=== PATIENT | male | born 1990 | race Caucasian/White ===

== ENCOUNTER 2019-08-04 09:10 | Inpatient (IN) | payer BC ==
--- NOTE | 2019-08-03 16:30 | Pre-op HX & Phy Repo 2 SIG ---
DATE OF ADMISSION: 08/04/2019 HISTORY OF PRESENT ILLNESS: The patient is a 28-year-old male in overall stable health with a failed ileoanal J-pouch scheduled to undergo surgery including abdominal-perineal proctectomy and resection of failed ileoanal S-pouch and creation of a Harris continent intestinal reservoir. The patient has a past history of ulcerative colitis that developed in 2013 and failed all medical treatments. In October 2016, he underwent total colectomy with S-pouch and loop ileostomy in a laparoscopic-assisted procedure. The ileostomy was closed in October 2016. Ever since then, he has had frequent stools 10 to 15 times per day plus up to 5 stools every night and he has incontinence. 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 OPERATIONS: 1. Laparoscopic-assisted total colectomy and partial proctectomy with ileoanal S-pouch in August 2016. 2. Closure of diverting ileostomy in October 2016. MEDICATIONS: None. ALLERGIES: Cipro causes numbness and tingling in the hands. REVIEW OF SYSTEMS: The patient feels depleted. He has episodes of dehydration. His weight used to be 195 pounds. He is now down to 170 pounds although stable. PHYSICAL EXAMINATION: GENERAL: The patient is 6 feet, 170 pounds. He is arriving from out of [facility] and will be examined upon arrival and dictated separately. IMPRESSION: 1. Malfunctioning failed ileoanal pouch. 2. History of ulcerative colitis. 3. Status post multiple abdominal operations. 3.1. Laparoscopic-assisted total abdominal colectomy and partial proctectomy with creation of ileoanal S-pouch in August 2016 with diverting loop ileostomy in the left lower quadrant. 3.2. Closure of diverting ileostomy in October 2016. PLAN: I have had a full discussion with the patient regarding the nature of his condition, the nature of the planned surgery, indications, alternatives, options, and risks including bleeding, infection, injury to adjacent structures or organs, complications or delayed healing of the perineum, the risks of Harris pouch surgery including the risk of reoperation for slipped valve or fistula of pouch or valve or other complications with the function or structure of the pouch etc. I have discussed the risk of pouchitis with a new pouch and its management. I will have another full discussion in person with the patient when he [place]. Mauri Flowers M.D. DR: NAYELI JOB#: [id number] CC:
[~2019-08-04] VITALS: Ht 182.9 cm; Wt 73.5 kg
--- NOTE | 2019-08-04 09:41 | NUR ---
NURSE NOTES: Received patient from direct adm. pt a/a/o x4 ambulatory with no signs of distress or other issues at this time. RN will enter orders and carry them out. I will f/u as needed.
[2019-08-04] MEDS ORDERED: Lidocaine 1% Plain 30 ml INJ ONE (10:45)
[2019-08-04] MEDS ORDERED: Heparin1,000 units/500ml Premix(Conc:2 units/ml) IV ONE (10:45)
[2019-08-04] MEDS ORDERED: D5 1/2NS w/KCl 20mEq 1,000 ML IV SCH (11:00)
[2019-08-04] MEDS ORDERED: Zolpidem 5mg tab ORAL PRN ×2 (11:00→20:00)
[2019-08-04 12:00] VITALS: BP 136/72
--- NOTE | 2019-08-04 12:04 | NUR ---
RADIOLOGY DEPT., CHEST X-RAY DONE.-P.DYE
[2019-08-04 12:40] LABS: BASOPHILS % (AUTO) 0.9 % (0.0-2.0); EOSINOPHILS % (AUTO) 3.2 % (0.0-3.0); HEMATOCRIT 47.1 % (42.0-52.0); HEMOGLOBIN 15.1 G/DL (14.2-18.0); LYMPHOCYTES % (AUTO) 11.4 % (20.0-45.0); MEAN CORPUSCULAR VOLUME 81 FL (80-99); MONOCYTES % (AUTO) 5.9 % (1.0-10.0); NEUTROPHILS % (AUTO) 78.6 % (45.0-75.0); PLATELET COUNT 291 K/UL (150-450); RED BLOOD COUNT 5.82 M/UL (4.70-6.10); WHITE BLOOD COUNT 9.7 K/UL (4.8-10.8)
--- NOTE | 2019-08-04 13:02 | Diagnostic Imaging Report ---
Indication: Cough Technique: One view of the chest Comparison: none Findings: Lungs and pleural spaces are clear. Heart size is normal Impression: No acute process
[2019-08-04 13:15] LABS: % IRON SATURATION 9 % (15-50); IRON 27 ug/dL (50-175); TOTAL IRON BINDING CAPACITY 310 ug/dL (250-450)
[2019-08-04] MEDS: Neomycin Sulfate 500mg Tab ORAL SCH ×3 (13:21→20:06)
[2019-08-04] MEDS ORDERED: Lidocaine 1% Plain 30 ml INJ SCH (13:30)
[2019-08-04] MEDS ORDERED: Heparin1,000 units/500ml Premix(Conc:2 units/ml) IV SCH (13:30)
[2019-08-04 13:35] LABS: ANION GAP 12 mmol/L (5-15); BLOOD UREA NITROGEN 15 mg/dL (7-18); CALCIUM 9.4 MG/DL (8.5-10.1); CARBON DIOXIDE 28 MMOL/L (21-32); CHLORIDE 108 MMOL/L (98-107); CREATININE 0.9 MG/DL (0.55-1.30); POTASSIUM 4.1 MMOL/L (3.5-5.1); SODIUM 147 MMOL/L (136-145)
--- NOTE | 2019-08-04 13:44 | NUR ---
NURSE NOTES: Pt left the floor for PICC line placement. pt left the floor with no signs of distress or other issues. I will f/u as needed.
[2019-08-04 13:56] LABS: ALANINE AMINOTRANSFERASE 18 U/L (12-78); ALBUMIN 3.9 G/DL (3.4-5.0); ALKALINE PHOSPHATASE 56 U/L (46-116); ASPARTATE AMINO TRANSFERASE 12 U/L (15-37); BILIRUBIN,TOTAL 0.3 MG/DL (0.2-1.0); FERRITIN 47 NG/ML (8-388)
--- NOTE | 2019-08-04 14:30 | Pre-Procedure Note/Attestation ---
Pre-Procedure Note/Attestation Complete Prior to Procedure Planned Procedure: not applicable Procedure Narrative: PICC Indications for Procedure Pre-Operative Diagnosis: needs IV access for TPN Attestation I attest that I discussed the nature of the procedure; its benefits; risks and complications; and alternatives (and the risks and benefits of such alternatives ), prior to the procedure, with the patient (or the patient's legal hospital insurance representative). I attest that, if there was a reasonable possibility of needing a blood transfusion, the patient (or the patient's legal hospital insurance representative) was given the [facility] standardized written summary, pursuant to the Marcos Carson Blood Safety Act ([place] Health and Safety Code # 1645, as amended). I attest that I re-evaluated the patient just prior to the surgery and that there has been no change in the patient's H&P, except as documented below: Harjinder Lopez MD Aug 04, 2019 14:30
--- NOTE | 2019-08-04 14:31 | Brief Operative Note ---
Immediate Post Operative Note Operative Note Pre-op Diagnosis: needs IV access for TPN Procedure: PICC Post-op Diagnosis: same as pre-op Surgeon: Juan LOPEZ Anesthesia: local Specimen: none Complications: none Fluids: none Implant(s) used?: No Harjinder Lopez MD Aug 04, 2019 14:31
--- NOTE | 2019-08-04 14:45 | Diagnostic Imaging Report ---
Indications: Needs long-term IV access Technique: Ultrasound confirms patent compressible left basilic vein. Total sterile technique, including sterile probe cover and sterile gel, hat, mask, sterile gown, large sterile drape, and preparation with 2% chlorhexidine utilized. Local anesthesia with 1% lidocaine. Under real-time ultrasound guidance, puncture basilic vein using 21-gauge needle, documented and archived, passage 0.018 guidewire under direct fluoroscopy, which was used to determine appropriate catheter length, exchange for 4 Emirati peel-away sheath. 4 Emirati Bard dual-lumen power PICC cut to 46 cm. It was inserted through the peel-away sheath. Peel-away sheath and guidewire removed. Catheter fixed to the skin. Both catheter ports aspirated and flushed. Patient tolerated procedure well, without immediate complication. Digital radiograph documents satisfactory catheter tip position, at the cavoatrial junction. Total fluoroscopy time 14.7 seconds. Total dose area product [id number] mGym2 Total number of images: 1 Impression: Successful placement of left arm PICC under sonographic and fluoroscopic guidance, as described above.
[2019-08-04 16:00] VITALS: BP 110/59
[2019-08-04] MEDS: D5W w/KCl 20mEq 1,000 ML IV SCH (16:11)
--- NOTE | 2019-08-04 16:24 | Anethesia Preoperative Eval ---
Anesthesia Pre-op PMH/ROS General Date of Evaluation: Aug 04, 2019 Time of Evaluation: 16:22 ASA Score: ASA 2 Mallampati Score Class I : Soft palate, uvula, fauces, pillars visible Class II: Soft palate, uvula, fauces visible Class III: Soft palate, base of uvula visible Class IV: Only hard plate visible Mallampati Classification: Class II Surgeon: Lionel Diagnosis: U. Colitis Surgical Procedure: Abd Perinaeal proctectomy Anesthesia History: none Family History: no anesthesia problems Allergies: Coded Allergies: NO KNOWN ALLERGIES (Verified Allergy, Unknown, 08/04/19) Medications: see eMAR Patient NPO?: Yes NPO Date: Aug 04, 2019 NPO Time: 00:01 Past Medical History Cardiovascular: Denies: HTN, CAD, PA, valve dz, arrhythmia, other Pulmonary: Denies: asthma, COPD, ROSELIA, other Gastrointestinal/Genitourinary: Reports: other - Ulcer colitis; Denies: GERD, CRI, ESRD Neurologic/Psychiatric: Denies: dementia, CVA, depression/anxiety, TIA, other Endocrine: Denies: DM, hypothyroidism, steroids, other HEENT: Denies: cataract (L), cataract (R), glaucoma, MINTO (L), MINTO (R), other Hematology/Immune: Denies: anemia, DVT, bleeding disorder, other Musculoskeletal/Integumentary: Denies: OA, RA, DJD, DDD, edema, other PSxH Narrative: S pouch 2016 Anesthesia Pre-op Phys. Exam Physician Exam Last Vital Signs Date Time Temp Pulse Resp B/P (MAP) Pulse Ox O2 Delivery O2 Flow Rate FiO2 08/04/19 12:00 97.3 71 18 136/72 (93) 96 08/04/19 10:37 Room Air Constitutional: NAD Neurologic: CN 2-12 intact Cardiovascular: RRR Respiratory: CTA Gastrointestinal: S/NT/ND Airway Exam Mallampati Classification 2 Mallampati Score: Class II MO: full ROM: full Dentures: no upper, no lower Anesthesia Pre-op A/P Labs Hematology Test 08/04/19 12:24 White Blood Count 9.7 K/UL (4.8-10.8) Red Blood Count 5.82 M/UL (4.70-6.10) Hemoglobin 15.1 G/DL (14.2-18.0) Hematocrit 47.1 % (42.0-52.0) Mean Corpuscular Volume 81 FL (80-99) Mean Corpuscular Hemoglobin 26.0 PG (27.0-31.0) L Mean Corpuscular Hemoglobin Concent 32.1 G/DL (32.0-36.0) Red Cell Distribution Width 13.0 % (11.6-14.8) Platelet Count 291 K/UL (150-450) Mean Platelet Volume 4.9 FL (6.5-10.1) L Neutrophils (%) (Auto) 78.6 % (45.0-75.0) H Lymphocytes (%) (Auto) 11.4 % (20.0-45.0) L Monocytes (%) (Auto) 5.9 % (1.0-10.0) Eosinophils (%) (Auto) 3.2 % (0.0-3.0) H Basophils (%) (Auto) 0.9 % (0.0-2.0) Coagulation Test 08/04/19 12:24 Prothrombin Time 10.6 SEC (9.30-11.50) Prothromb Time International Ratio 1.0 (0.9-1.1) Activated Partial Thromboplast Time 28 SEC (23-33) Chemistry Test 08/04/19 12:24 Sodium Level 147 MMOL/L (136-145) H Potassium Level 4.1 MMOL/L (3.5-5.1) Chloride Level 108 MMOL/L (98-107) H Carbon Dioxide Level 28 MMOL/L (21-32) Anion Gap 12 mmol/L (5-15) Blood Urea Nitrogen 15 mg/dL (7-18) Creatinine 0.9 MG/DL (0.55-1.30) Estimat Glomerular Filtration Rate > 60 mL/min (>60) Glucose Level 87 MG/DL (74-106) Calcium Level 9.4 MG/DL (8.5-10.1) Iron Level 27 ug/dL (50-175) L Total Iron Binding Capacity 310 ug/dL (250-450) Percent Iron Saturation 9 % (15-50) L Unsaturated Iron Binding 283 ug/dL (112-346) Ferritin 47 NG/ML (8-388) Total Bilirubin 0.3 MG/DL (0.2-1.0) Aspartate Amino Transf (AST/SGOT) 12 U/L (15-37) L Alanine Aminotransferase (ALT/SGPT) 18 U/L (12-78) Alkaline Phosphatase 56 U/L (46-116) Total Protein 7.8 G/DL (6.4-8.2) Albumin 3.9 G/DL (3.4-5.0) Globulin 3.9 g/dL Albumin/Globulin Ratio 1.0 (1.0-2.7) Vitamin B12 Level 698 PG/ML (193-986) Folate 17.0 NG/ML (8.6-58.9) Studies Pre-op Studies: EKG - SR Risk Assessment & Plan Plan: Kendra Alonso CRNA Aug 04, 2019 16:24
--- NOTE | 2019-08-04 16:56 | General Progress Note ---
Progress Note Progress Note H&P dictated. Site selected for BCIR continent ileostomy stoma. Perianal skin with some excoriation circumferential. CBC - wnl Na 147 Iron 27 (50-175) Ferritin 47 (8-388) Albumin 3.9 - may be normal range due to dehydration /hempoconcentration B!2 and Folate ok Imp. History of Ulcerative Colitis with failed ileoanal J pouch with intractable pouchitis and incontinence Sever iron deficiency - he states this is chronic with his last iron infusion 6 months ago with brief improvement at that time Dehydration Plan: IV fluids via PICC f/u labs in AM bowel prep, pre-op IV antibiotics and subq heparin Full discussion with patient and . Mauri Flowers MD Aug 04, 2019 16:56
[2019-08-04 17:21] LABS: APPEARANCE,URINE CLEAR; BILIRUBIN, URINE NEGATIVE (NEGATIVE); GLUCOSE, URINE (UA) NEGATIVE (NEGATIVE); KETONES,URINE 4+ (NEGATIVE); LEUKOCYTE ESTERASE ,URINE NEGATIVE (NEGATIVE); NITRITE,URINE NEGATIVE (NEGATIVE); PH,URINE 5 (4.5-8.0); PROTEIN,URINE NEGATIVE (NEGATIVE); UROBILINOGEN,URINE NORMAL MG/DL (0.0-1.0)
[2019-08-04 17:23] LABS: COLOR,URINE YELLOW
--- NOTE | 2019-08-04 19:36 | NUR ---
HAND-OFF: Report given to Belén LANE, pt in stable condition. - During my shift pt was able to ambulate around the unit multiple times with steady gait. I&O's - Ileostomy out put:505-80= 425ml - Total urine output: 1700ml - Total oral intake: 1108ml - Breakfast, Lunch and Diner: 100% Addendum: 08/04/19 at 1940 by Lilliam Rees RN please discard this note belong to a different patient!!
--- NOTE | 2019-08-04 19:40 | NUR ---
HAND-OFF: Report given to Belén LANE. pt in stable condition. - pt signed consent for tomorrow procedure.
--- NOTE | 2019-08-04 19:41 | NUR ---
NURSE NOTES: Received report & pt from DOMINGO Vyas. Pt lying in bed, a&ox4, in room air, family member at bedside. No s/s of acute distress & No c/o pain. Skin intact. PICC line intact with IVF running as ordered. Pt to NPO at midnight for tomorrow's surgery & pt made aware. Bed in lowest position, call light within reach. Will continue to monitor.
[2019-08-04 20:00] VITALS: BP 114/65
[2019-08-04] MEDS: Dyna-Hex 2% Top Sol 2oz TOPIC SCH (20:06)
[2019-08-05] VITALS (18 sets, daily range): BP systolic 100–124; BP diastolic 58–74
[2019-08-05] MEDS: D5W w/KCl 20mEq 1,000 ML IV SCH ×2 (00:12→08:00)
[2019-08-05] MEDS: Ampicillin/Sulbactam Sod 3 GM in NS 110 ML IVPB SCH ×4 (00:13→17:30)
--- NOTE | 2019-08-05 03:15 | Pre-op HX & Phy Repo 2 SIG ---
DATE OF ADMISSION: 08/04/2019 The [place] now [place]. Please see previously dictated history. PHYSICAL EXAMINATION: GENERAL: He is well developed, appears slightly depleted. VITAL SIGNS: Normal stable vital signs and no distress. He is 6 feet and 170 pounds. His usual weight has been 195 pounds. HEENT: Within normal limits. LUNGS: Clear. HEART: Regular rhythm. BREASTS: Without masses. ABDOMEN: Soft. There is a lower midline scar, slightly wide. There is a curvilinear scar just above the umbilicus. There is a transverse scar in the upper part of the left lower quadrant from prior ileostomy. There is no evidence of abdominal wall hernia. GENITOURINARY: Testes and scrotum within normal limits. RECTAL: There is circumferential perianal skin excoriation from his ongoing incontinence issues from his failed ileoanal J-pouch. EXTREMITIES: Without edema. Pulses 3+ femoral to posterior tibial bilaterally. NEUROLOGIC: Physiologic. LABORATORY STUDIES: On admission revealed he is somewhat dehydrated with sodium 147, BUN 15, and creatinine 0.9. He has not been eating well at all and is depleted. Albumin of 3.9, is probably artificially elevated because of his dehydration and hemoconcentration, especially hemoglobin of over 15 with a history of chronic anemia requiring iron infusions, last given six months ago. The serum iron is 27, normal range 50 to 175. The ferritin is 47, normal range 8 to 338. IMPRESSION: 1. Malfunctioning and failed ileoanal J-pouch. 2. History of ulcerative colitis. 3. STATUS POST MULTIPLE ABDOMINAL OPERATIONS: 3.1. Laparoscopic-assisted total abdominal colectomy with partial proctectomy and creation of ileoanal S-pouch in August 2016 with diverting loop ileostomy, left lower quadrant. 3.2. Closure of diverting ileostomy in October 2016. 4. Dehydration on admission with hypernatremia and possible hemoconcentration. PLAN: The patient has undergone insertion of a dual lumen PICC line beginning on intravenous hydration, bowel prep with intravenous hydration during his bowel prep. We will start intravenous antibiotics the night of admission, continuing to surgery the following morning. He will receive preoperative subcutaneous heparin. Repeat laboratory studies will be obtained after overnight hydration to see what his true levels are for hemoglobin, serum albumin, and electrolytes. Plan: abdomino-perineal proctectomy with resection of failed J-pouch with intractable pouchitis and creation of a Harris continent intestinal reservoir. I have had a full discussion with the patient and his regarding the nature of his condition, the nature of the surgery, indications, alternatives, options, and risks. Discussed the option of resecting the J-pouch and completing the proctectomy as low as possible above the anal canal, but deferring completion proctectomy if the perianal excoriation is severe at the time of surgery with examination under anesthesia because of the increased risk of failure to heal the perineum primarily. The alternative would be to do a subsequent perineal proctectomy. I have discussed the nature of the Harris continent intestinal reservoir and that it requires a normal amount of small intestine and normal small intestine without pathology. Also, we discussed the use of a temporary gastrostomy and its indications. I have discussed the general risks of surgery including bleeding, infection, injury to adjacent structures or organs, adhesions that could lead to obstructions, bladder dysfunction, postoperative impotence and the retrograde ejaculation as risks of the procedure. I have also discussed the specific risks of the Harris continent intestinal reservoir including the potential need for revision for slipped valve or because of fistula of pouch or valve, or other issues including the function and structure of the pouch. I have also discussed the risks that he could develop pouchitis in the Harris pouch and the various treatments and management available compared to his failed ileoanal J-pouch management. All questions have been answered. The patient understands and agrees to proceed. I have discussed the potential risks with transfusion as well. Mauri Flowers M.D. DR: NAZARIO JOB#: [id number] CC: JASON
[2019-08-05] MEDS ORDERED: Heparin 5000 units/ml inj SUBQ ONE (05:30)
--- NOTE | 2019-08-05 06:00 | NUR ---
NURSE NOTES: Told pt at beginning of shift that RN will record urine output. However, pt flushed all urine through out the night. Per pt, she urinated 5 times.
[2019-08-05] MEDS ORDERED: Rocuronium Bromide 50mg/5ml Inj IV ONE (06:22)
[2019-08-05] MEDS ORDERED: LR 1000ml 1,000 ML IVLG SCH (06:25)
[2019-08-05] MEDS ORDERED: Metoclopramide 10mg/2ml Inj IVP PRN (06:30)
[2019-08-05] MEDS ORDERED: DiphenhydrAMINE 50mg/ml Inj IVP PRN ×2 (06:30→12:30)
[2019-08-05] MEDS ORDERED: Ketorolac 30mg Inj IV PRN ×2 (06:30)
[2019-08-05] MEDS ORDERED: Atropine Sulfate 0.4mg/ml inj IVP PRN (06:30)
[2019-08-05] MEDS ORDERED: Labetalol 5mg/ml 20ml vial IV PRN (06:30)
[2019-08-05] MEDS ORDERED: oxyCODONE HCL/Acetaminophen 5/325mg ORAL PRN (06:30)
[2019-08-05] MEDS ORDERED: Hydromorphone 0.5mg/0.5ml inj IVP PRN (06:30)
[2019-08-05] MEDS ORDERED: fentaNYL 100 mcg/2 mL IV PRN (06:30)
[2019-08-05] MEDS ORDERED: HYDROcodone/Acetamin 5/325 tab ORAL PRN (06:30)
[2019-08-05] MEDS ORDERED: LORazepam Inj 2mg/ml 1ml IV PRN (06:30)
[2019-08-05] MEDS ORDERED: HYDROcodone/Acetamin 7.5/325 tab ORAL PRN (06:30)
[2019-08-05] MEDS ORDERED: Midazolam 2mg/2ml Inj IVP PRN (06:30)
[2019-08-05] MEDS ORDERED: Meperidine 50mg/ml Inj(FOR RIGORS ONLY) IVP PRN (06:30)
[2019-08-05 06:49] LABS: BASOPHILS % (AUTO) 0.8 % (0.0-2.0); EOSINOPHILS % (AUTO) 4.7 % (0.0-3.0); HEMATOCRIT 47.3 % (42.0-52.0); HEMOGLOBIN 15.3 G/DL (14.2-18.0); LYMPHOCYTES % (AUTO) 16.2 % (20.0-45.0); MEAN CORPUSCULAR VOLUME 81 FL (80-99); MONOCYTES % (AUTO) 6.5 % (1.0-10.0); NEUTROPHILS % (AUTO) 71.8 % (45.0-75.0); PLATELET COUNT 285 K/UL (150-450); RED BLOOD COUNT 5.86 M/UL (4.70-6.10); RED CELL DISTRIBUTION WIDTH 12.4 % (11.6-14.8); WHITE BLOOD COUNT 7.2 K/UL (4.8-10.8)
[2019-08-05] MEDS ORDERED: Dexamethasone 4mg/ml vial ONE (06:51)
[2019-08-05] MEDS ORDERED: Lidocaine 1% MPF 10mg/ml 5ml ONE (06:51)
[2019-08-05] MEDS ORDERED: fentaNYL 100 mcg/2 mL IV ONE ×2 (06:52→09:34)
--- NOTE | 2019-08-05 06:53 | Pre-Procedure Note/Attestation ---
Pre-Procedure Note/Attestation Complete Prior to Procedure Planned Procedure: not applicable Procedure Narrative: Abdomino-perineal proctectomy with excision of ileoanal J pouch, Harris Continent Intestinal [place], gastrostomy Indications for Procedure Pre-Operative Diagnosis: Ulcerative colitis with failed ileoanal J pouch Attestation I attest that I discussed the nature of the procedure; its benefits; risks and complications; and alternatives (and the risks and benefits of such alternatives ), prior to the procedure, with the patient (or the patient's legal real estate representative). I attest that, if there was a reasonable possibility of needing a blood transfusion, the patient (or the patient's legal real estate representative) was given the [place] [facility] standardized written summary, pursuant to the Marcos Bryan Blood Safety Act ([place] Health and Safety Code # 1645, as amended). I attest that I re-evaluated the patient just prior to the surgery and that there has been no change in the patient's H&P, except as documented below: none Mauri Flowers MD Aug 05, 2019 06:53
[2019-08-05] MEDS ORDERED: Lidocaine 1% Plain 30 ml INJ ONE ×3 (06:54→10:52)
--- NOTE | 2019-08-05 06:56 | NUR ---
NURSE NOTES: Pt picked up by transporter. In stable condition. VSS. ID band verified. Pre-op checklist also done.
[2019-08-05] MEDS ORDERED: LR 1000ml ONE (07:00)
[2019-08-05] MEDS ORDERED: Sterile Water Irrig 1000ml IRRIG ONE (07:00)
[2019-08-05] MEDS ORDERED: NS Irrig 1000ml ONE (07:00)
[2019-08-05] MEDS ORDERED: Propofol 1,000mg/ 100ml btl IV ONE (07:00)
[2019-08-05] MEDS ORDERED: Acetaminophen (Non formulary) 100 ML IV ONE (07:00)
[2019-08-05] MEDS ORDERED: NeoSporin Gu Irrig 1ml Amp IRRIG ONE (07:13)
[2019-08-05] MEDS ORDERED: Bacitracin 50000 Units Vial ONE (07:13)
--- NOTE | 2019-08-05 07:30 | NUR ---
HAND-OFF: Report given to DOMINGO Altamirano. Pt already went down for surgery. AM RN to bring down 1200 ABX (Flagyl & Unasyn) to surgery.
[2019-08-05 07:56] LABS: ALANINE AMINOTRANSFERASE 18 U/L (12-78); ALBUMIN 3.7 G/DL (3.4-5.0); ALKALINE PHOSPHATASE 53 U/L (46-116); ANION GAP 9 mmol/L (5-15); ASPARTATE AMINO TRANSFERASE 17 U/L (15-37); BILIRUBIN,TOTAL 0.5 MG/DL (0.2-1.0); BLOOD UREA NITROGEN 8 mg/dL (7-18); CALCIUM 9.4 MG/DL (8.5-10.1); CARBON DIOXIDE 28 MMOL/L (21-32); CHLORIDE 107 MMOL/L (98-107); POTASSIUM 4.2 MMOL/L (3.5-5.1); SODIUM 144 MMOL/L (136-145)
--- NOTE | 2019-08-05 07:58 | NUR ---
NURSE NOTES: Received report from Belén LANE. Patient in OR currently, Flagyl taken down and given to OR, pharmacy to send Unasyn to OR when made.
[2019-08-05] MEDS ORDERED: NS Irrig 1000ml IRRIG ONE (08:00)
--- NOTE | 2019-08-05 11:10 | NUR ---
*-* NO INSURANCE INFORMATION IN THE BAR UNABLE TO SEND CLINICALS OR REVIEWS *-*
[2019-08-05] MEDS ORDERED: Glycopyrrolate 0.2mg/ml 1ml Vial ONE (11:12)
[2019-08-05] MEDS ORDERED: Neostigmine 1mg/ml 10ml Inj ONE (11:12)
[2019-08-05] MEDS ORDERED: Ampicillin/Sulbactam Sod 3 GM in NS 110 ML IV SCH (12:00)
[2019-08-05] MEDS ORDERED: Morphine Sulfate 2mg/ml Inj(IV/IM USE ONLY) IVP PRN (12:23)
--- NOTE | 2019-08-05 12:24 | Brief Operative Note ---
Immediate Post Operative Note Operative Note Pre-op Diagnosis: Ulcerative colitis with failed ileoanal J pouch Procedure: resection of failed ileoanal J pouch with distal proctectomy Harris Continent Intestinal [place] Gastrostomy Post-op Diagnosis: same Post-op Diagnosis: same as pre-op Findings: consistent w/pre-op dx studies Surgeon: cindy Coo: obed Anesthesiologist: jeffery Anesthesia: general Specimen: yes - ileoanal J pouch, small bowel trimmings Complications: none Condition: stable Fluids: see anesthesia record Estimated Blood Loss: volume - 100cc Drains: other - ABDELRAHMAN to deep pelvis, o.25" hayes, 18Fr gastrostomy, 18Fr BCIR ileo catheter Implant(s) used?: No Mauri Flowers MD Aug 05, 2019 12:24
--- NOTE | 2019-08-05 12:25 | Immediate Post-Op Evaluation ---
Immediate Post-Op Evalulation Immediate Post-Op Evalulation Procedure: Kimberly, Continent Ileostomy Date of Evaluation: Aug 05, 2019 Time of Evaluation: 12:39 IV Fluids: 1500 LR Blood Products: 0 Estimated Blood Loss: 100 Urinary Output: 200 Blood Pressure Systolic: 103 Blood Pressure Diastolic: 62 Pulse Rate: 64 Respiratory Rate: 16 O2 Sat by Pulse Oximetry: 100 Temperature (Fahrenheit): 97.1 Pain Score (1-10): 2 Nausea: No Vomiting: No Complications 0 Patient Status: awake, reacts, patent, extubated, none Hydration Status: adequate Drug: Flagyl, Unisyn at 12N Given Within 1 Hr of Incision: Yes Time Given: 12:00 Dany Lopez MD Aug 05, 2019 12:25
[2019-08-05] MEDS ORDERED: LORazepam 1mg tab SL PRN ×2 (12:30)
[2019-08-05] MEDS ORDERED: Acetaminophen 650mg/20.3ml GT PRN (12:30)
[2019-08-05] MEDS ORDERED: PCA Education Pamphlet MISC ONE (12:30)
[2019-08-05] MEDS ORDERED: Rate Change PCA 1 Each MISC PRN (12:30)
[2019-08-05] MEDS ORDERED: Naloxone 0.4mg/ml Inj IVP PRN (12:30)
[2019-08-05] MEDS: PCA Morphine 1mg/ml 30 ML IV PRN ×2 (12:35→22:56)
--- NOTE | 2019-08-05 14:30 | NUR ---
NURSE NOTES: Received report from Rosa Trevino RN. Patient arrived to unit at 1400 via bed. Patient is drowsy, but arousable to voice, no acute distress noted, reporting surgical site pain, occasional facial grimace. Ileo to gravity drainage with blood tinged output noted, redmond to gravity drainage with clear yellow urine, gastrostomy to gravity drainage with green output noted. On 2L NC. SCD's in place. Patient on PACKING AND SHIPPING CLERK morphine, settings checked and verified against order. Patient and his at bedside instructed on PACK[employer] SHIPPING CLERK use. Patient placed on continuous pulseox, saturating at 100%. Surgical site dressing clean and intact, abdominal ABDELRAHMAN compressed and draining serosanguinous output. Side rails upx3, bed low and locked, call light in reach. Will continue to monitor.
[2019-08-05] MEDS: D5 1/4NS w/KCl 20mEq 1,000 ML IV SCH ×2 (14:52→22:46)
--- NOTE | 2019-08-05 16:52 | General Progress Note ---
Progress Note Progress Note AVSS comfortable with Morphine HEEL GUMMER. No c/o re extremities upper or lower Dressing with small amount serosang via hayes, and ABDELRAHMAN and BCIR ileo Imp. Stable Mauri Flowers MD Aug 05, 2019 16:52
--- NOTE | 2019-08-05 17:30 | Operative Note - Dictated ---
DATE OF OPERATION: 08/05/2019 SURGEON: Mauri Flowers M.D. WASTEWATER ANALYST SURGEON: Navdeep Bentley M.D. ANESTHESIOLOGIST: Dany Lopez M.D. TYPE OF ANESTHESIA: General endotracheal. PREOPERATIVE DIAGNOSES: 1. Malfunctioning and failed ileoanal pouch. 2. History of ulcerative colitis. 3. Status post multiple abdominal operations. 3.1. Laparoscopic-assisted total abdominal colectomy and partial proctectomy with creation of ileoanal S-pouch with diverting loop ileostomy in the left lower quadrant in August 2016. 3.2. Closure of diverting ileostomy in October 2016. POSTOPERATIVE DIAGNOSES: 1. Malfunctioning and failed ileoanal pouch. 2. History of ulcerative colitis. 3. Status post multiple abdominal operations. 3.1. Laparoscopic-assisted total abdominal colectomy and partial proctectomy with creation of ileoanal S-pouch with diverting loop ileostomy in the left lower quadrant in August 2016. 3.2. Closure of diverting ileostomy in October 2016. OPERATION PERFORMED: 1. Laparotomy with resection of failed ileoanal J-pouch with distal proctectomy. 2. Segmental small bowel resection with prior enteroenterostomy. 3. Harris continent intestinal reservoir. 4. Catheter gastrostomy. DESCRIPTION OF PROCEDURE: The patient was taken to the operating room and under general endotracheal anesthesia with sequential compression device stockings and Bains catheter in place, positioned with appropriate padding in the lithotomy position with Trevor stirrups, the patient was prepped and draped in the usual fashion. Before the draping, I had done examination under anesthesia. He had a stricture at the junction of the pouch and the upper anal canal, and the perianal skin was excoriated and ulcerated. I also placed a Ly suction into the pouch to decompress any residual contents. Then after the patient was positioned, prepped, and draped, lower midline incision was reopened, extended ultimately just above the umbilicus. There were some adhesions of omentum with adhesive bands to the right and left side of the abdomen. These were taken down and a segment of omentum resected to prevent increased risk of obstruction from adhesions using the Thunderbeat electrosurgical device. The liver and gallbladder were normal. The stomach was normal. The patient had an abundance of small bowel, which was normal. Throughout the procedure, ureters and bladder were protected. Initially, the small bowel was divided with a SMOOTH just at the connection with the ileoanal pouch mobilizing it out of the pelvis and taking down some adhesions to free up all of the small bowel. The pouch mesentery was then divided down to the sacral promontory and dissection continued posteriorly below the rectum. There was severe inflammation and severe scarring and the dissection was kept right along the bowel wall. One entry into the pouch was made, which helped facilitate identifying the lateral aspects. I felt that with the perianal excoriation and ulceration and this inflammation and scarring, it was not advisable to do a complete abdomino-perineal proctectomy with the perineal portion being delayed to allow for healing. The bowel was divided approximately 4 cm from the anal verge with the stapler. This line was very thick and was oversewn with continuous #0 Prolene suture. Hemostasis was secured. Now, I initially wanted to use the bowel between the stapled end of the small bowel and incorporate the prior enteroenterostomy, but it was very thickened with a narrow lumen with dilated bowel proximally and I had to resect the segment again using a SMOOTH and the Thunderbeat to divide the mesentery. The staple line was imbricated with 3-0 silk and then 12 cm proximal marked for the intestinal collar segment. 15 cm proximal to this, the apex of the pouch was marked and then with appropriately located enterotomies keeping two 15 cm loops of ileum [id number] using the SMOOTH 75, a stapled ileal reservoir was created. The staple line was everted and 1 defect was seen, which was closed with continuous locking 2-0 chromic imbricated with interrupted 3-0 silk. The mucosal aspect had showed satisfactory hemostasis. The junction of the afferent bowel and the pouch was marked with a chromic suture and 12 cm proximal marked for the valve segment. A 2 fingerbreadth mesenteric hiatus created at this point using the Thunderbeat. The abdominal wall thickness was approximately 3 cm. An appropriate length access segment was measured and marked and the bowel divided with the linear stapler 30 proximally imbricated with 3-0 silk and distally left open to become the new stoma. Some mesentery was divided to allow for straight access segment using the Thunderbeat. The peritoneum was stripped on each side of the valve segment mesentery and the serosa scarified with cautery. With gradual intussusception, a 6.0 cm long nipple valve was created. Using the PI 55 stapling device with 4.8 mm charles, two rows were fired 90 degrees away from the mesentery. Sutures of 3-0 silk were placed between the access segment and the pouch at each side of its mesentery and then a third application of the PI 55 stapling device was utilized to staple the valve to the anterior pouch wall. Additional 3-0 silk was placed between the access segment and pouch. Using the ly suction, alignment was maintained and confirmed at all times. Now, the proximal bowel was brought [id number] with a very short blind end to the opening in the pouch and a 2-layer anastomosis created with an outer layer of 3-0 silk then the proximal bowel opened and a full-thickness continuous locking 2-0 chromic anastomosis created with an outer layer of 3-0 silk. A very good 2 fingerbreadth plus anastomosis was created. Now, the end of the collar was brought through the mesenteric hiatus at the junction of the access and valve segments and the collar sutured to itself, to the access segment and to the pouch with interrupted 3-0 silk and the 2 ends, the end of the collar and the end of proximal bowel, sutured together with 3-0 silk. The 28-[place] Bains was placed into the pouch through the access segment with the afferent bowel manually occluded, the pouch was distended with 150 mL of saline. There was no extravasation and upon removing the catheter, there was no incontinence. The catheter was reintroduced and the pouch decompressed. The pelvic dissection was irrigated and inspected and hemostasis was secured. Through a separate stab incision in the left lower quadrant, a thin flat Pietro-East was placed into the presacral space and sutured to the skin with 2-0 silk. The pelvic perineum was closed staying very superficially with continuous 2-0 chromic leaving the opening for the drain. This prevented bowel loops or the pouch from going into the presacral space towards the coccyx. The pouch lay nicely across the pelvis. At a previously marked location low in the right lower quadrant in transrectus position, a 2.5 cm narrow ellipse of skin was excised in transverse orientation and with a cruciate incision in the fascia, 1.5 to 2 fingerbreadth abdominal wall hiatus was created. The posterior collar and pouch was sutured to the peritoneum with 3-0 Vicryl and then the stoma and access segment with its mesentery brought through, the 28-[place] Bains catheter placed back into the pouch, and the pouch was up against the abdominal wall. The redundant access segment was excised and the stoma primarily matured with continuous 2-0 chromic locking suture starting at the 3 and 9 o'clock positions. A very satisfactory stoma was achieved. Through a separate stab incision inferior to the stoma, a quarter-inch Slaughters drain was placed loosely around the pouch and sutured to the skin with 3-0 silk. Now in order to provide good decompression from above, through a separate stab incision in the left upper quadrant, an 18-[place] Bains catheter was brought through the abdominal wall and placed into the stomach, greater curve anterior wall of body between two concentric 2-0 chromic pursestring sutures with the balloon inflated and the stomach sutured to the anterior abdominal wall with multiple interrupted 3-0 silk sutures. The catheter was flushed and connected to a gravity drainage bag. The catheter was sutured to the skin with 2-0 silk. Now, the 28-[place] Bains catheter in the Harris continent intestinal reservoir pouch was placed into the apex and sutured to the skin with two sutures of 2-0 silk. It was flushed and connected to a gravity drainage bag. Throughout the procedure, antibiotic soaked laps had been used to protect the incision and a Sawyer retractor had been used. The incision was now closed in one layer with continuous #1 looped PDS, followed by antibiotic irrigation and skin charles. Dry sterile dressings were applied. Final sponge and needle counts were correct. The patient tolerated the procedure well and left the operating room in stable condition. Mauri Flowers M.D. DR: NAYELI JOB#: [id number] CC: JASON
--- NOTE | 2019-08-05 18:50 | NUR ---
CASE MANAGEMENT: INITIAL REVIEW 28 YO M PRESENTED TO OUR ED FROM HOME CC: FAILED ILEOANAL J POUCH PMHx: COLITIS SI:COMPLICATIONS OF INTESTINAL POUCH T 97.3 HR 71 RR 18 B/P 136/72 SATS 96% ON RA NA 147 CL 108 AST 12 IS: PATIENT ADMITTED TO MED/SURG 08/04/2019 @ 1043 DCP: PATIENT TO BE DISCHARGED TO HOME ONCE MEDICALLY CLEARED. PLAN OF CARE: Pre-op Diagnosis: Ulcerative colitis with failed ileoanal J pouch Procedure: resection of failed ileoanal J pouch with distal proctectomy Kimberly Continent Intestinal [place] Gastrostomy Post-op Diagnosis: same Addendum: 08/05/19 at 1853 by Colleen Hicks CM INTERQUAL MET
--- NOTE | 2019-08-05 19:04 | NUR ---
NURSE NOTES: Total ileo output for my shift: +10mL Total g-tube output: -30mL Total urine output (from 1400 to 1800): 200mL Patient's pain is well managed at this time, VS are stable, patient encouraged to move extremities as tolerated and use IS when awake.
[2019-08-05] MEDS: PCA shift volume MISC SCH (19:28)
--- NOTE | 2019-08-05 19:35 | NUR ---
HAND-OFF: Report given to Bleén LANE.
--- NOTE | 2019-08-05 19:36 | NUR ---
NURSE NOTES: Received report & pt from DOMINGO Altamirano. Pt lying in bed, a&ox4, on O2 via NC @ 2LPM, family member at bedside. No s/s of acute distress & c/o 5/10 pain. Pain managed by BOND UNDERWRITER pump per pt. Bains, Ileo, GT cath intact & draining to gravity. ABDELRAHMAN bulb to suction. PICC line intact with IVF running as ordered. BOND UNDERWRITER setting checked. Bed in lowest position, call light & BOND UNDERWRITER pump within reach. Will continue to monitor.
[2019-08-05] MEDS: Dyna-Hex 2% Top Sol 2oz TOPIC SCH ×2 (20:05→20:49)
[2019-08-05] MEDS: Iron Sucrose 100 MG in NS 55 ML IV SCH ×2 (20:49→21:30)
--- NOTE | 2019-08-05 21:30 | NUR ---
NURSE NOTES: Pt refused Venofer IVPB stating, "I dont want my Venofer right now. I feel nauseous. It makes me feel nauseous. Some other time I would definitely want the Venofer." Educated pt about med but still continued to refuse. RN offered pt Zofran for nausea but pt states, "I don't think I need it. I'm ok for now" Told pt to call RN if he needs PRN meds for anything.
[2019-08-06] VITALS: BP 102/58
[2019-08-06] MEDS: Ampicillin/Sulbactam Sod 3 GM in NS 110 ML IVPB SCH ×5 (00:04→23:39)
[2019-08-06 04:00] VITALS: BP 109/65
[2019-08-06] MEDS: D5 1/4NS w/KCl 20mEq 1,000 ML IV SCH ×3 (06:02→23:39)
[2019-08-06 06:32] LABS: ANION GAP 8 mmol/L (5-15); BLOOD UREA NITROGEN 10 mg/dL (7-18); CALCIUM 8.5 MG/DL (8.5-10.1); CARBON DIOXIDE 29 MMOL/L (21-32); CHLORIDE 107 MMOL/L (98-107); CREATININE 0.8 MG/DL (0.55-1.30); POTASSIUM 4.5 MMOL/L (3.5-5.1); SODIUM 144 MMOL/L (136-145)
[2019-08-06 06:58] LABS: HEMATOCRIT 40.7 % (42.0-52.0); HEMOGLOBIN 13.8 G/DL (14.2-18.0); MEAN CORPUSCULAR VOLUME 79 FL (80-99); PLATELET COUNT 267 K/UL (150-450); RED BLOOD COUNT 5.15 M/UL (4.70-6.10); RED CELL DISTRIBUTION WIDTH 12.4 % (11.6-14.8); WHITE BLOOD COUNT 20.4 K/UL (4.8-10.8)
[2019-08-06] MEDS: PCA shift volume MISC SCH ×2 (07:25→19:18)
--- NOTE | 2019-08-06 07:30 | NUR ---
HAND-OFF: Report given to DOMINGO Altamirano. Rounds done. Encouraged to ambulate today. Dr. Flowers called to get an update regarding pt & update given. MD also aware of WBC 20.4
--- NOTE | 2019-08-06 07:30 | NUR ---
NURSE NOTES: Received report from Belén LANE. Patient is awake and oriented x4, during rounds, no acute distress noted. On 2L NC. Reporting pain is well managed at this time on SUSTAINABILITY ANALYST. SUSTAINABILITY ANALYST settings checked and verified against order. IVF running per order through PICC line, PICC intact, asymptomatic, patent, dressing clean and dry. Ileo, redmond and g-tube to gravity drainage. SCD's on. Discussed plan to get OOB and ambulate today, patient in agreement. Updated on plan of care for the day. Side rails upx3, bed low and locked, call light in reach. Will continue to monitor.
[2019-08-06 08:00] VITALS: BP 105/59
--- NOTE | 2019-08-06 09:51 | NUR ---
*-* INSURANCE *-* ALL COLINICALS AND REVIEWS HAVE BEEN FAXED TO: B/[facility] FAX CLINICALS TO [phone] [facility] FAX CLINICALS BEFORE 08/10/19 Addendum: 08/06/19 at 1018 by BHASKAR LUCAS FRANCISCO P: [phone] REF# [id number]
[2019-08-06 12:00] VITALS: BP 104/65
--- NOTE | 2019-08-06 13:44 | NUR ---
RN HYPERBARICDIRECTOR OF SUSTAINABLE DESIGN SI: ULCERATIVE COLITIS, POD#1 S/P LAP WITH RESECTION OF FAILED ILEOANAL J POUCH T. 97.5 HR 58 RR 16 B/P 105/59 2L NC O2 SAT @ 98% WBC 20.4 IS: IVF D5 @ 125ML/HR AMPICILLIN IV FLAGYL IV IRON IV MORPHINE IV MED/SURG STATUS
--- NOTE | 2019-08-06 14:19 | General Progress Note ---
Progress Note Progress Note AVSS Pain controlled with Morphine WET PROCESS MILLER. Ambulated today Chest - decreased expansion cor - reg rhythm Abdomen distended, soft, incision clean, stoma pink Overnight 12 hours: urine 1350 BCIR neg but now small mount enteric Gastrostomy 165 bilious WBC 20,400 Hgb 13.8 BMP -wnl Imp. Ileus Atelectasis Plan: npo, gastrostomy and BCIR catheters to continuous gravity drainage Venofer for very low serum iron and low ferritin TPN continue Bains (pelvic dissection) Mauri Flowers MD Aug 06, 2019 14:19
--- NOTE | 2019-08-06 14:49 | NUR ---
RD ASSESSMENT & RECOMMENDATIONS SEE CARE ACTIVITY FOR COMPLETE ASSESSMENT DAILY ESTIMATED NEEDS: Needs based on Surgery, wt loss 75 25-30 kcals/kg 9453-3647 total kcals 1-2 g protein/kg 75-150 g total protein 25-30 mL/kg 1366-5297 total fluid mLs NUTRITION DIAGNOSIS: Altered GI fxn r/t UC and new ileo as evidenced by s/p J pouch take down w/ creation of continent ileo, NPO, w/ ileu, TPN ordered. CURRENT DIET:NPO PARENTERAL NUTRITION RECOMMENDATIONS: D/AA Rate: 75 IL Rate: 10 Total Rate: 85 Volume: 2040 % Dextrose: 19 % AA: 5.4 Energy (kcals/kg): 2024 Protein (g/kg protein): 97 Nonprotein KCALS: 1643 GIR (mg CHO/kg/min): 3.2 % Fat KCALS: 24 NPC: N Ratio: 106:1 TPN Comment: D19% + AA 5.4% @75ml/hr with 20% IL @10ml/hr-> all 3:1 Goal rate of 85ml/hr to provide 2024 kcal (27 kcal/kg) and 97g pro (1.3g/kg). GIR <5 IL <30% NPC >100:1 Start rate per MD ADDITIONAL RECOMMENDATIONS: 1) TPN recs as above 2) Weekly standing weights 3) Lytes and BG daily w/ TPN 4) LFT's weekly
[2019-08-06] MEDS: PCA Morphine 1mg/ml 30 ML IV PRN (15:19)
[2019-08-06 16:00] VITALS: BP 107/56
--- NOTE | 2019-08-06 18:30 | NUR ---
NURSE NOTES: Total ileo output: -5mL Total g-tube output: +220mL Total urine output: 1650mL ABDELRAHMAN drain output: 20mL Patient's pain well managed at this time with BUSINESS MGR. Got OOB x1 to chair and walked in room.
--- NOTE | 2019-08-06 18:46 | 48 Hour Post Anesthesia Eval ---
Post Anesthesia Evaluation Procedure: Harris, Continent Ileostomy Date of Evaluation: Aug 06, 2019 Time of Evaluation: 18:45 Blood Pressure Systolic: 107 0: 76 Pulse Rate: 71 Respiratory Rate: 15 O2 Sat by Pulse Oximetry: 98 Airway: patent Nausea: No Vomiting: No Hydration Status: adequate Cardiopulmonary Status: stable Mental Status/LOC: patient returned to baseline Post-Anesthesia Complications: none Follow-up care needed: N/A Kendra Davis CRNA Aug 06, 2019 18:46
--- NOTE | 2019-08-06 19:30 | NUR ---
HAND-OFF: Report given to Rossy LANE.
--- NOTE | 2019-08-06 19:44 | NUR ---
NURSE NOTES: Received report from AM RN, Evelia Sethi. Patient is resting comfortably in bed semi-fowlers position with sequential compression devices on bilaterally. Fluids running D5 1/4 NS at 125ml/hr. Bains catheter is draining to gravity clear yellow urine. G-tube and ileostomy are both draining to gravity with no s/s of redness or inflammation. Central line site and dressing is c/d/i. No complaints of SOB to room air. c/o of pain /10. Encouraged use of COFFEE GRINDER pump. Will continue to monitor.
[2019-08-06 20:00] VITALS: BP 107/63
[2019-08-06] MEDS: Iron Sucrose 100 MG in NS 55 ML IV SCH (20:20)
[2019-08-07] VITALS: BP 99/58
[2019-08-07 04:00] VITALS: BP 105/65
[2019-08-07 05:14] LABS: BASOPHILS % (AUTO) 0.6 % (0.0-2.0); EOSINOPHILS % (AUTO) 0.8 % (0.0-3.0); HEMATOCRIT 40.1 % (42.0-52.0); HEMOGLOBIN 12.9 G/DL (14.2-18.0); LYMPHOCYTES % (AUTO) 9.5 % (20.0-45.0); MEAN CORPUSCULAR VOLUME 80 FL (80-99); MONOCYTES % (AUTO) 6.4 % (1.0-10.0); NEUTROPHILS % (AUTO) 82.7 % (45.0-75.0); PLATELET COUNT 186 K/UL (150-450); RED BLOOD COUNT 4.98 M/UL (4.70-6.10); RED CELL DISTRIBUTION WIDTH 12.6 % (11.6-14.8)
[2019-08-07 05:49] LABS: ALANINE AMINOTRANSFERASE 21 U/L (12-78); ALBUMIN 2.8 G/DL (3.4-5.0); ALBUMIN/GLOBULIN RATIO 0.9 (1.0-2.7); ALKALINE PHOSPHATASE 38 U/L (46-116); ANION GAP 5 mmol/L (5-15); ASPARTATE AMINO TRANSFERASE 25 U/L (15-37); BILIRUBIN,TOTAL 0.3 MG/DL (0.2-1.0); BLOOD UREA NITROGEN 6 mg/dL (7-18); CALCIUM 8.6 MG/DL (8.5-10.1); CARBON DIOXIDE 31 MMOL/L (21-32); CHLORIDE 108 MMOL/L (98-107); CREATININE 0.8 MG/DL (0.55-1.30); POTASSIUM 4.1 MMOL/L (3.5-5.1); SODIUM 144 MMOL/L (136-145)
[2019-08-07] MEDS: Ampicillin/Sulbactam Sod 3 GM in NS 110 ML IVPB SCH ×3 (06:23→17:18)
[2019-08-07] MEDS: D5 1/4NS w/KCl 20mEq 1,000 ML IV SCH ×3 (06:24→20:26)
[2019-08-07] MEDS: PCA shift volume MISC SCH ×2 (07:18→19:18)
[2019-08-07] MEDS ORDERED: Naloxone 0.4mg/ml Inj IVP PRN (07:27)
--- NOTE | 2019-08-07 07:28 | NUR ---
HAND-OFF: Report given to Thuan Barnard RN. Patient in stable condition resting with girlfriend at bedside.
[2019-08-07] MEDS ORDERED: Rate Change PCA 1 Each MISC PRN (07:30)
--- NOTE | 2019-08-07 07:30 | NUR ---
NURSE NOTES: Patient lying in bed awake. Complain of pain 4/10 on surgical site and on MANAGER SPANISH for pain management. Will continue to monitor. Surgical dressing intact and dry. Ileostomy catheter, GT catheter, Bains catheter and ABDELRAHMAN drainage patent draining well. PICC line dressing intact and dry. Bed lowest position. Call light within reach. Will continue to monitor.
[2019-08-07] MEDS ORDERED: PCA Morphine 1mg/ml 30 ML IV PRN ×2 (07:41→09:15)
[2019-08-07] MEDS ORDERED: DiphenhydrAMINE 50mg/ml Inj IVP PRN (07:46)
[2019-08-07 08:00] VITALS: BP 102/65
--- NOTE | 2019-08-07 08:58 | General Progress Note ---
Progress Note Progress Note AVSS Comfortable with minimal occasional nausea. Ambulated in room yesterday Abdomen mildly distended, soft, incision clean, stoma pink Urine 3450 Gastrostomy 390 BCIR ileo - scant enteric ABDELRAHMAN 50cc/24 hours WBC down 11,000 Hgb 12.9 BUN 6 Cr 0.8 albumin 2.8 Imp. Ileus Plan: Start TPN in view of extensive surgery and low albumin Continue npo, Mik Bains Increase ambulation Mauri Flowers MD Aug 07, 2019 08:58
[2019-08-07] MEDS ORDERED: Phytonadione 10 mg/mL 1ml amp SUBQ SCH (09:00)
[2019-08-07 12:00] VITALS: BP 131/69
[2019-08-07] MEDS ORDERED: NS 275ml ONE (14:18)
[2019-08-07] MEDS ORDERED: Tubing IV Secondary IV ONE (14:18)
[2019-08-07] MEDS ORDERED: NS Irrig 1000ml ONE (14:18)
[2019-08-07 16:00] VITALS: BP 115/66
--- NOTE | 2019-08-07 19:30 | NUR ---
HAND-OFF: Report given to Ambreen LANE. Patient in stable condition.
[2019-08-07 20:00] VITALS: BP 112/68
[2019-08-07] MEDS ORDERED: Dextrose 10% 1,000 ML IV PRN (20:00)
[2019-08-07] MEDS: Dyna-Hex 2% Top Sol 2oz TOPIC SCH (20:15)
[2019-08-07] MEDS: Iron Sucrose 100 MG in NS 55 ML IV SCH (20:26)
[2019-08-07] MEDS: Fat Emulsion Iv 20% 240 ML in Tpn 1,800 ML IV SCH (20:26)
[2019-08-07] MEDS: Ketorolac 30mg Inj IV PRN (20:28)
--- NOTE | 2019-08-07 22:26 | NUR ---
NURSE NOTE: Pt is A/Ox4 with stable VS. His significant other is at the bedside. Orders reviewed and physical assessment completed. TPN initiated and education on q6 accu checks provided. Pt demonstrated proper usage of IS, achieved 1500. Pt expressed that he has been ambulatory throughout the day, refused to wear SCD's at bedtime despite education. Pt expresses desire to get rest. Call silveira is within reach. Will continue to monitor.
[2019-08-08] MEDS: Ampicillin/Sulbactam Sod 3 GM in NS 110 ML IVPB SCH ×4 (00:10→17:24)
[2019-08-08] MEDS: NovoLOG Insulin Flexpen SUBQ SCH ×4 (00:11→18:00)
[2019-08-08 00:26] VITALS: BP 113/58
[2019-08-08 04:26] VITALS: BP 110/35
[2019-08-08 05:11] LABS: BASOPHILS % (AUTO) 0.6 % (0.0-2.0); EOSINOPHILS % (AUTO) 3.5 % (0.0-3.0); HEMATOCRIT 39.9 % (42.0-52.0); LYMPHOCYTES % (AUTO) 8.9 % (20.0-45.0); MEAN CORPUSCULAR VOLUME 80 FL (80-99); MONOCYTES % (AUTO) 6.3 % (1.0-10.0); NEUTROPHILS % (AUTO) 80.6 % (45.0-75.0); PLATELET COUNT 195 K/UL (150-450); RED BLOOD COUNT 4.96 M/UL (4.70-6.10); RED CELL DISTRIBUTION WIDTH 12.5 % (11.6-14.8); WHITE BLOOD COUNT 7.8 K/UL (4.8-10.8)
[2019-08-08 05:29] LABS: ALANINE AMINOTRANSFERASE 16 U/L (12-78); ALBUMIN 2.7 G/DL (3.4-5.0); ALBUMIN/GLOBULIN RATIO 0.8 (1.0-2.7); ALKALINE PHOSPHATASE 40 U/L (46-116); ANION GAP 5 mmol/L (5-15); ASPARTATE AMINO TRANSFERASE 30 U/L (15-37); BILIRUBIN,TOTAL 0.4 MG/DL (0.2-1.0); BLOOD UREA NITROGEN 9 mg/dL (7-18); CALCIUM 8.7 MG/DL (8.5-10.1); CARBON DIOXIDE 30 MMOL/L (21-32); CHLORIDE 106 MMOL/L (98-107); CREATININE 0.8 MG/DL (0.55-1.30); POTASSIUM 4.1 MMOL/L (3.5-5.1); SODIUM 141 MMOL/L (136-145)
--- NOTE | 2019-08-08 06:40 | NUR ---
NURSE NOTE: Pt refused 0600 Accu check despite education.
[2019-08-08] MEDS: PCA shift volume MISC SCH ×2 (07:12→19:05)
--- NOTE | 2019-08-08 07:12 | NUR ---
HAND-OFF: Report given to janessa Morfin is stable. Endorsed to RN that pt refused to wear SCDs and also refused 0600 Accu check.
--- NOTE | 2019-08-08 07:27 | NUR ---
NURSE NOTES: Received report from DOMINGO Crook. Rounding done with outgoing nurse. Pt is asleep. Morphine LEAD CASTER is on. Ileostomy, Gastrostomy, redmond is patent. Bed in lowest position, call light within reach. Will continue to monitor.
[2019-08-08 08:00] VITALS: BP 105/57
[2019-08-08] MEDS ORDERED: Naloxone 0.4mg/ml Inj IVP PRN (09:07)
--- NOTE | 2019-08-08 09:10 | NUR ---
NURSE NOTES: Patient ambulated hallway x 2 with assistance in stable condition.
[2019-08-08] MEDS ORDERED: PCA Morphine 1mg/ml 30 ML IV PRN (09:15)
[2019-08-08] MEDS ORDERED: Rate Change PCA 1 Each MISC PRN (09:15)
--- NOTE | 2019-08-08 09:20 | General Progress Note ---
Progress Note Progress Note AVSS Comfortable with no basal infusion of VACUUM TANK TENDER and 1 dose of Toradol Abdomen is mildly distended, healing nicely Urine 4800 Gastrostomy 290 BCIR ileo 170 WBC 7800 Hgb 13 stable BMP-ok Mg 1.6 Albumin 2.7 Phosphorus 4 Imp. Ileus Plan: NPO, TPN, continue redmond and antibiotics Mg infusion f/u labs Mauri Flowers MD Aug 08, 2019 09:20
[2019-08-08] MEDS: Ketorolac 30mg Inj IV PRN ×2 (09:24→16:51)
--- NOTE | 2019-08-08 11:30 | NUR ---
NURSE NOTES: Patient ambulated hallway x 3 with assistance. No distress noted.
[2019-08-08 12:00] VITALS: BP 104/64
[2019-08-08] MEDS ORDERED: DiphenhydrAMINE 50mg/ml Inj IVP PRN (13:46)
--- NOTE | 2019-08-08 15:20 | NUR ---
NURSE NOTES: Patient ambulated hallway x 2 with assistance. No distress noted.
[2019-08-08 16:00] VITALS: BP 117/63
--- NOTE | 2019-08-08 18:10 | NUR ---
NURSE NOTES: Patient ambulated hallway x 2 with assistance. No distress noted.
--- NOTE | 2019-08-08 19:20 | NUR ---
HAND-OFF: Report given to DOMINGO Crook.
[2019-08-08 20:00] VITALS: BP 128/67
[2019-08-08] MEDS: D5 1/4NS w/KCl 20mEq 1,000 ML IV SCH (21:05)
[2019-08-08] MEDS: Iron Sucrose 100 MG in NS 55 ML IV SCH (21:05)
[2019-08-08] MEDS: Dyna-Hex 2% Top Sol 2oz TOPIC SCH (21:05)
[2019-08-08] MEDS: Fat Emulsion Iv 20% 240 ML in Tpn 1,800 ML IV SCH (21:07)
--- NOTE | 2019-08-08 22:33 | NUR ---
NURSE NOTE: Pt is A/Ox4 with stable VS. Orders reviewed and physical assessment completed. is at the bedside. Pt refused to wear SCDs. Will continue to monitor.
[2019-08-09 00:30] VITALS: BP 102/56
[2019-08-09] MEDS: NovoLOG Insulin Flexpen SUBQ SCH ×2 (01:13→06:40)
[2019-08-09] MEDS: Ampicillin/Sulbactam Sod 3 GM in NS 110 ML IVPB SCH ×4 (01:14→17:23)
[2019-08-09 04:00] VITALS: BP 110/35
[2019-08-09 05:40] LABS: BASOPHILS % (AUTO) 0.4 % (0.0-2.0); EOSINOPHILS % (AUTO) 3.4 % (0.0-3.0); HEMATOCRIT 40.7 % (42.0-52.0); HEMOGLOBIN 13.4 G/DL (14.2-18.0); LYMPHOCYTES % (AUTO) 8.1 % (20.0-45.0); MEAN CORPUSCULAR VOLUME 79 FL (80-99); MONOCYTES % (AUTO) 5.3 % (1.0-10.0); NEUTROPHILS % (AUTO) 82.9 % (45.0-75.0); PLATELET COUNT 234 K/UL (150-450); RED BLOOD COUNT 5.13 M/UL (4.70-6.10); RED CELL DISTRIBUTION WIDTH 12.2 % (11.6-14.8); WHITE BLOOD COUNT 9.3 K/UL (4.8-10.8)
[2019-08-09 06:00] LABS: ANION GAP 5 mmol/L (5-15); BLOOD UREA NITROGEN 13 mg/dL (7-18); CALCIUM 8.9 MG/DL (8.5-10.1); CARBON DIOXIDE 30 MMOL/L (21-32); CHLORIDE 107 MMOL/L (98-107); CREATININE 0.8 MG/DL (0.55-1.30); SODIUM 142 MMOL/L (136-145)
[2019-08-09] MEDS: PCA shift volume MISC SCH (07:12)
--- NOTE | 2019-08-09 07:29 | NUR ---
HAND-OFF: Report given to YOGI. Pt is stable.
--- NOTE | 2019-08-09 07:30 | NUR ---
NURSE NOTES: Patient lying in bed awake. Complain of pain 4/10 on surgical site and on ELEMENTARY EDUCATOR for pain management. Will continue to monitor. Surgical dressing intact and dry. Ileostomy catheter, GT catheter, Bains catheter and ABDELRAHMAN drainage bag patent and draining well. PICC line dressing intact and dry. TPN and IV fluid on going as ordered. Bed lowest position. Call light within reach. Will continue to monitor.
[2019-08-09 08:00] VITALS: BP 107/56
[2019-08-09] MEDS ORDERED: Naloxone 0.4mg/ml Inj IVP PRN (08:20)
[2019-08-09] MEDS ORDERED: PCA Morphine 1mg/ml 30 ML IV PRN (08:23)
[2019-08-09] MEDS ORDERED: DiphenhydrAMINE 50mg/ml Inj IVP PRN (08:24)
[2019-08-09] MEDS ORDERED: Rate Change PCA 1 Each MISC PRN (08:30)
--- NOTE | 2019-08-09 08:37 | General Progress Note ---
Progress Note Progress Note AVSS Refusing interventions including accuchecks, peripheral lab draws. Ambulating well c/o severe bad taste in mouth from TPN and requests d/c TPN Abdomen slight distention, healing well, hayes nil . ABDELRAHMAN drain 25cc serosang urine 2645 Gastrostomy 870 BCIR ileo 790 CBC,BMP stable wnl Mg 1.8 Imp: Resolving ileus Plan: continue npo and redmond d/c pig handler and TPN Mauri Flowers MD Aug 09, 2019 08:37
[2019-08-09] MEDS: D5 1/4NS w/KCl 20mEq 1,000 ML IV SCH ×2 (10:01→17:23)
[2019-08-09] MEDS ORDERED: Tubing IV Secondary IV ONE (10:26)
[2019-08-09] MEDS ORDERED: NS Irrig 1000ml ONE (10:26)
[2019-08-09] MEDS ORDERED: Sterile Water Irrig 1000ml IRRIG ONE (10:26)
--- NOTE | 2019-08-09 11:10 | NUR ---
*-* INSURANCE *-* ALL COLINICALS AND REVIEWS HAVE BEEN FAXED TO: B/S DERIC [facility] FAX CLINICALS TO [phone] [facility] FAX CLINICALS BEFORE 08/10/19 DEPT P: [phone] REF# [id number]
[2019-08-09 12:00] VITALS: BP 114/70
[2019-08-09] MEDS: Ketorolac 30mg Inj IV PRN (14:06)
--- NOTE | 2019-08-09 14:54 | NUR ---
RD ASSESSMENT & RECOMMENDATIONS SEE CARE ACTIVITY FOR COMPLETE ASSESSMENT DAILY ESTIMATED NEEDS: Needs based on Surgery, wt loss 75kg 25-30 kcals/kg 8149-1047 total kcals 1-2 g protein/kg 75-150 g total protein 25-30 mL/kg 7537-3906 total fluid mLs NUTRITION DIAGNOSIS: Altered GI fxn r/t UC and new ileo as evidenced by s/p J pouch take down w/ creation of continent ileo, NPO, w/ ileus, TPN was ordered. CURRENT DIET:NPO PO DIET RECOMMENDATIONS: Clears per MD PARENTERAL NUTRITION RECOMMENDATIONS: D/AA Rate: 75 IL Rate: 10 Total Rate: 85 Volume: 2040 % Dextrose: 19 % AA: 5.4 Energy (kcals/kg): 2024 Protein (g/kg protein): 97 Nonprotein KCALS: 1643 GIR (mg CHO/kg/min): 3.2 % Fat KCALS: 24 NCP: N Ratio: 106:1 TPN Comment: D19% + AA 5.4% @75ml/hr with 20% IL @10ml/hr-> all 3:1 Goal rate of 85ml/hr to provide 2024 kcal (27 kcal/kg) and 97g pro (1.3g/kg). GIR <5 IL <30% NPC >100:1 Start rate per MD . ADDITIONAL RECOMMENDATIONS: 1) TPN recs as above as needed 2) Weekly standing weights 3) Lytes and BG daily w/ TPN 4) LFT's weekly
[2019-08-09 16:00] VITALS: BP 107/60
[2019-08-09] MEDS ORDERED: PCA shift volume MISC SCH (19:00)
--- NOTE | 2019-08-09 19:26 | NUR ---
HAND-OFF: Report given to Belén LANE. Patient in stable condition.
--- NOTE | 2019-08-09 19:30 | NUR ---
NURSE NOTES: Received report & pt from DOMINGO Larose. Pt lying in bed, a&ox4, in room air, family member at bedside. No s/s of acute distress & c/o 6/10 pain. Will give PRN pain med when due & pt verbalized understanding. Bains, Ileo, GT cath intact & draining to gravity. ABDELRAHMAN bulb to suction. PICC line intact with IVF running as ordered. Surgical dressing C/D/I. Bed in lowest position, call light within reach. Will continue to monitor.
[2019-08-09] MEDS: Dyna-Hex 2% Top Sol 2oz TOPIC SCH (20:02)
[2019-08-09] MEDS: Iron Sucrose 100 MG in NS 55 ML IV SCH (20:27)
[2019-08-09 20:46] VITALS: BP 110/62
[2019-08-10] VITALS: BP 92/58
[2019-08-10] MEDS: D5 1/4NS w/KCl 20mEq 1,000 ML IV SCH ×3 (00:36→17:30)
[2019-08-10] MEDS: Ampicillin/Sulbactam Sod 3 GM in NS 110 ML IVPB SCH ×3 (00:36→12:41)
[2019-08-10 04:00] VITALS: BP 99/56
[2019-08-10 05:42] LABS: ANION GAP 5 mmol/L (5-15); BLOOD UREA NITROGEN 13 mg/dL (7-18); CALCIUM 8.8 MG/DL (8.5-10.1); CARBON DIOXIDE 30 MMOL/L (21-32); CHLORIDE 106 MMOL/L (98-107); CREATININE 0.9 MG/DL (0.55-1.30); POTASSIUM 4.1 MMOL/L (3.5-5.1); SODIUM 141 MMOL/L (136-145)
[2019-08-10 05:44] LABS: BASOPHILS % (AUTO) 0.6 % (0.0-2.0); EOSINOPHILS % (AUTO) 5.2 % (0.0-3.0); HEMATOCRIT 40.6 % (42.0-52.0); HEMOGLOBIN 13.3 G/DL (14.2-18.0); LYMPHOCYTES % (AUTO) 10.3 % (20.0-45.0); MEAN CORPUSCULAR VOLUME 80 FL (80-99); MONOCYTES % (AUTO) 5.1 % (1.0-10.0); NEUTROPHILS % (AUTO) 78.7 % (45.0-75.0); PLATELET COUNT 255 K/UL (150-450); RED BLOOD COUNT 5.08 M/UL (4.70-6.10); RED CELL DISTRIBUTION WIDTH 12.3 % (11.6-14.8); WHITE BLOOD COUNT 9.1 K/UL (4.8-10.8)
--- NOTE | 2019-08-10 07:30 | NUR ---
HAND-OFF: Report given to RN. Kristine Pt in stable condition. Rounds done. Addendum: 08/13/19 at 2338 by Belén Guardado RN for 08/10/19 @ 4976, given to DOMINGO Vyas.
[2019-08-10 08:00] VITALS: BP 110/67
--- NOTE | 2019-08-10 08:00 | NUR ---
NURSE NOTES: Received report from Belén LANE, pt a/a/o x4 laying in bed in stable condition with no signs of distress or other issues at this time. pt is NPO x ice chips and meds. GT draining to gravity , total fur polisher out put:245ml, total ileostomy out put during night shit:445ml, Bains cath in place draining to gravity total output: 500ml. [place] in place. ABDELRAHMAN drain x1 total output 3ml overnight. surgical dressing 4x4, abd, charles and paper today. PICC line in place on the left upper arm running D51/4NS+20mEq@125ml/hr. at bed side. call light within reach, bed in lowest position. side rales up x2. I will f/u as needed.
--- NOTE | 2019-08-10 08:05 | General Progress Note ---
Progress Note Progress Note AVSS Abdomen soft, healing nicely Urine 1600 Gastrostomy 890 BCIR ileo 765 ABDELRAHMAN drain 13 Labs all wnl Mg 1.8 Imp. Improving slowly Plan: remove urinary Bains catheter d/c IV antibiotics continue npo with BCIR ileostomy and gastrostomy catheters to continuous drainage Mauri Flowers MD Aug 10, 2019 08:05
[2019-08-10 12:00] VITALS: BP 108/63
--- NOTE | 2019-08-10 13:27 | NUR ---
OCCUPATIONAL THERAPIST ASSISTANTSLAST PICKER SI: ULCERATIVE COLITIS POST OP DAY 5 T. 98.3 HR 74 RR 21 B/P 110/67 IS: IVF D5KCL @ 125ML/HR TORADOL MED/SURG STATUS
--- NOTE | 2019-08-10 15:13 | NUR ---
*-* INSURANCE *-* ALL CLINICALS AND REVIEWS HAVE BEEN FAXED TO: B/S DERIC [facility] FAX CLINICALS TO [phone] [facility] FAX CLINICALS BEFORE 08/10/19 DEPT P: [phone] REF# [id number]
[2019-08-10] MEDS: Ketorolac 30mg Inj IV PRN (15:23)
[2019-08-10 16:00] VITALS: BP 107/61
--- NOTE | 2019-08-10 19:20 | NUR ---
NURSE NOTES: Report taken from DOMINGO Vyas. Patient is awake and seated at bedside, A&ox4. Family at bedside. No signs of distress on room air. No complaints of pain or discomfort. Ambulates without assistance, continue to encourage ambulation. IKE PICC c/d/i and patent, running D51/4NS+20KCl at 125mls/hr. TPN stopped per MD order. Ileo c/d/i and patent, draining to gravity, dark green liquid. G-tube c/d/i and patent, draining to gravity light green fluid. Skin intact. Surgical site c/d/i. Bed in lowest position, call light within reach.
--- NOTE | 2019-08-10 19:56 | NUR ---
HAND-OFF: Report given to Ata LANE, pt in stable condition with no sings of distress or other issues at this time. - During my shift pt was able to ambulate multiple times with steady gait. total I&O's Total ileostomy out put:450-11=574id total GT out put: 750-95=433jq total urine: 725 pt remains NPO.
[2019-08-10 20:00] VITALS: BP 106/68
[2019-08-10] MEDS: Dyna-Hex 2% Top Sol 2oz TOPIC SCH (20:00)
--- NOTE | 2019-08-10 22:00 | NUR ---
NURSE NOTES: Contacted Dr. Flowers, patient ileo output was dark red per the flush at 2100. returned phone call. Placed lab orders for the AM. Endorsed RN to flush Q1Hr for 4-5hours. Continue to monitor output. VS stable
[2019-08-11] VITALS: BP 105/67
[2019-08-11] MEDS: D5 1/4NS w/KCl 20mEq 1,000 ML IV SCH ×3 (01:30→17:55)
[2019-08-11 04:00] VITALS: BP 108/45
[2019-08-11 06:17] LABS: BASOPHILS % (AUTO) 0.9 % (0.0-2.0); EOSINOPHILS % (AUTO) 5.2 % (0.0-3.0); HEMATOCRIT 40.3 % (42.0-52.0); HEMOGLOBIN 13.2 G/DL (14.2-18.0); LYMPHOCYTES % (AUTO) 10.8 % (20.0-45.0); MEAN CORPUSCULAR VOLUME 80 FL (80-99); NEUTROPHILS % (AUTO) 77.1 % (45.0-75.0); PLATELET COUNT 250 K/UL (150-450); RED BLOOD COUNT 5.02 M/UL (4.70-6.10); RED CELL DISTRIBUTION WIDTH 12.6 % (11.6-14.8); WHITE BLOOD COUNT 9.5 K/UL (4.8-10.8)
[2019-08-11 07:05] LABS: ANION GAP 4 mmol/L (5-15); BLOOD UREA NITROGEN 12 mg/dL (7-18); CALCIUM 9.1 MG/DL (8.5-10.1); CARBON DIOXIDE 33 MMOL/L (21-32); CHLORIDE 105 MMOL/L (98-107); POTASSIUM 4.2 MMOL/L (3.5-5.1); SODIUM 142 MMOL/L (136-145)
--- NOTE | 2019-08-11 07:08 | General Progress Note ---
Progress Note Progress Note AVSS Having some bloody drainage from Harris pouch - low volume, clearing this AM Voiding normally. Feels okay Abdomen soft, healing well Urine 1525 Gastrostomy 1165 BCIR ileo 565 (185cc overnight) ABDELRAHMAN nil CBC and BMP stable Imp: Harris pouch bleeding Resolved ileus Plan: Carafate instilled into pouch as liquid q4h prn bleeding clear liquid diet with gastrostomy to drainage Mauri Flowers MD Aug 11, 2019 07:08
--- NOTE | 2019-08-11 07:20 | NUR ---
HAND-OFF: Report given to DOMINGO Lane. Patient is awake, VS stable. Dr. Flowers gave new orders for carafate due now. Med crushed and given through Ileo per instructions. Outputs for the evening below Ileo: 195cc G-tube: 495cc UO: 800cc..
[2019-08-11] MEDS: Sucralfate 1gm tab ORAL SCH ×5 (07:36→23:30)
[2019-08-11 08:00] VITALS: BP 108/69
[2019-08-11] MEDS ORDERED: Sucralfate 1gm tab ORAL SCH (09:00)
[2019-08-11 12:00] VITALS: BP 100/65
--- NOTE | 2019-08-11 12:55 | NUR ---
GAS GOLF CART REPAIRERFITNESS CONSULTANT SI: ULCERATIVE COLITIS S/P POUCH T. 98.1 HR 87 RR 18 B/P 100/65 RA 98% CO2 33 IS: IVF D5KCL @ 100ML/HR CARAFATE PO VIT K SUBC CLEAR LIQUID DIET MED/SURG STATUS
--- NOTE | 2019-08-11 14:47 | NUR ---
NURSE NOTES: PATIENT TOLERATING CLEAR LIQUID TRAY. NO FURTHER BLEEDING FROM ILEOSTOMY SITE. PATIENT UP AMBULATING WITH FAMILY AROUND NURSING UNIT. DENIES ANY PAIN.
[2019-08-11] MEDS: Ketorolac 30mg Inj IV PRN (15:16)
[2019-08-11 15:56] VITALS: BP 112/54
--- NOTE | 2019-08-11 19:15 | NUR ---
NURSE NOTES: Report taken from DOMINGO Lane. Patient is awake and ambulating room, A&Ox4. No signs of distress on room air. Having very minimal complaint of pain through his abdomen, 3/10. Stated that he feels slight tugging at the G-tube site, will assess and reposition.G-tube c/d/i and patent draining green/brown fluid to gravity. Ileo c/d/i and draining light brown fluid, stated that he would not like to continue to carafate if ileo fluid appears without blood. IKE PICC c/d/i and patent, running D51/4NS+20KCl at 125mls/hr. Tolerating luquids well. Bed in lowest position, call light within reach.
--- NOTE | 2019-08-11 19:36 | NUR ---
HAND-OFF: Report given to DAHLIA Meeks RN.
[2019-08-11 20:00] VITALS: BP 105/68
[2019-08-11] MEDS: Dyna-Hex 2% Top Sol 2oz TOPIC SCH (20:00)
[2019-08-12] VITALS: BP 108/72
[2019-08-12] MEDS: D5 1/4NS w/KCl 20mEq 1,000 ML IV SCH ×3 (02:29→18:33)
[2019-08-12] MEDS: Sucralfate 1gm tab ORAL SCH (03:30)
[2019-08-12 06:40] LABS: BASOPHILS % (AUTO) 0.6 % (0.0-2.0); EOSINOPHILS % (AUTO) 4.3 % (0.0-3.0); HEMATOCRIT 41.8 % (42.0-52.0); HEMOGLOBIN 13.8 G/DL (14.2-18.0); LYMPHOCYTES % (AUTO) 11.5 % (20.0-45.0); MEAN CORPUSCULAR VOLUME 80 FL (80-99); MONOCYTES % (AUTO) 6.8 % (1.0-10.0); NEUTROPHILS % (AUTO) 76.8 % (45.0-75.0); PLATELET COUNT 287 K/UL (150-450); RED CELL DISTRIBUTION WIDTH 12.7 % (11.6-14.8); WHITE BLOOD COUNT 11.2 K/UL (4.8-10.8)
[2019-08-12 06:49] LABS: INR 1.1 (0.9-1.1)
[2019-08-12] MEDS ORDERED: Sucralfate 1gm tab ORAL PRN (07:00)
[2019-08-12 07:10] LABS: ALANINE AMINOTRANSFERASE 51 U/L (12-78); ALBUMIN 3.2 G/DL (3.4-5.0); ALBUMIN/GLOBULIN RATIO 0.9 (1.0-2.7); ALKALINE PHOSPHATASE 77 U/L (46-116); ANION GAP 7 mmol/L (5-15); ASPARTATE AMINO TRANSFERASE 47 U/L (15-37); BILIRUBIN,TOTAL 0.9 MG/DL (0.2-1.0); BLOOD UREA NITROGEN 11 mg/dL (7-18); CALCIUM 9.3 MG/DL (8.5-10.1); CARBON DIOXIDE 31 MMOL/L (21-32); CHLORIDE 103 MMOL/L (98-107); POTASSIUM 4.2 MMOL/L (3.5-5.1); SODIUM 141 MMOL/L (136-145)
--- NOTE | 2019-08-12 07:30 | NUR ---
NURSE NOTES: Patient is in bed awake and able to verbalize needs. Stable. Denies pain or SOB. Patient encouraged to use call light for assistance, verbalized understanding. Gtube draining into bag as ordered. Will flush and plug when patient eats breakfast. PICC running IV fluids as ordered. Patient is in bed in locked and lowest position with call light within reach. Will continue to monitor.
--- NOTE | 2019-08-12 07:44 | NUR ---
HAND-OFF: Report given to DOMINGO Blum. Patient is awake and ambulating, VS stable. Endorsed to RN G-tube 3:3 protocal. .
[2019-08-12 08:00] VITALS: BP 104/56
[2019-08-12 12:00] VITALS: BP 95/58
[2019-08-12] MEDS: Ketorolac 30mg Inj IV PRN (12:32)
--- NOTE | 2019-08-12 12:35 | General Progress Note ---
Progress Note Progress Note AVSS Tolerated clear liquid diet Abdomen soft, healing nicely Urine 2355 Gastrostomy 1065 BCIR ileo 1070 ABDELRAHMAN drain removed WBC up 11,200 Hgb 13.8 stable Imp. Improved Plan; Clear liquid diet with gastrostomy 3:3 protocol f/u labs Mauri Flowers MD Aug 12, 2019 12:35
--- NOTE | 2019-08-12 13:15 | NUR ---
VEGETABLE LOADERLITHOPONE CHARGER SI: ULCERATIVE COLITIS S/P POUCH. LEUKOCYTOSIS T.97.6 HR 77 RR 18 B/P 104/86 RA 98% WBC 11.2 AST 47 IS: PHYTONADIONE IV IVF D5 KCL @ 125ML/HR CARAFATE PO BCR DIET MED/SURG STATUS
--- NOTE | 2019-08-12 13:40 | NUR ---
*-* INSURANCE *-* ALL CLINICALS AND REVIEWS HAVE BEEN FAXED TO: B/S DERIC BARRERA FAX CLINICALS TO [phone] [facility] FAX CLINICALS BEFORE 08/10/19 DEPT P: [phone] REF# [id number]
[2019-08-12] MEDS ORDERED: Phytonadione 10 MG in D5W 55 ML IVPB SCH (14:00)
--- NOTE | 2019-08-12 14:55 | NUR ---
RD ASSESSMENT & RECOMMENDATIONS SEE CARE ACTIVITY FOR COMPLETE ASSESSMENT DAILY ESTIMATED NEEDS: Needs based on Surgery, wt loss 75kg 25-30 kcals/kg 9369-2024 total kcals 1-2 g protein/kg 75-150 g total protein 25-30 mL/kg 9998-4421 total fluid mLs NUTRITION DIAGNOSIS: Altered GI fxn r/t UC and new ileo as evidenced by s/p J pouch take down w/ creation of continent ileo, now resolved ileus, diet advanced to CLD. CURRENT DIET:CLD PO DIET RECOMMENDATIONS: DIET ADVANCE PER MD ADDITIONAL RECOMMENDATIONS: 1) Provided pt w/ BCIR diet edu 2) Obtain a standing weight as able 3) Monitor tolerance to diet 4) Lytes w/ ileo
[2019-08-12 16:00] VITALS: BP 105/60
--- NOTE | 2019-08-12 19:30 | NUR ---
NURSE NOTES: Received report from DOMINGO Blum and rounds made with outgoing nurse. Received pt sitting up in bed, AOx4, denies any pain, no distress noted. Surgical dressing C/D/I. Piccline patent and intact. IV fluid infusing as ordered. Ileo to drainage bag. G-tube plugged at this time. Denies cramping, no nausea or vomiting. Bed in lowest position and locked, side rails up x 2, call light within reach. Will continue to monitor.
--- NOTE | 2019-08-12 19:31 | NUR ---
HAND-OFF: Report given to Lazaro LANE. Patient is stable.
[2019-08-12 20:00] VITALS: BP 111/57
[2019-08-12] MEDS: Dyna-Hex 2% Top Sol 2oz TOPIC SCH (20:04)
--- NOTE | 2019-08-12 21:00 | NUR ---
NURSE NOTES: Surgical dressing change per pt's request. Applied 4x4 gauze, abd, and silk tape. Minimal pinkish noted. pt denies any pain.
[2019-08-13] VITALS: BP 99/50
[2019-08-13] MEDS: D5 1/4NS w/KCl 20mEq 1,000 ML IV SCH ×2 (01:52→09:21)
[2019-08-13 05:59] LABS: BASOPHILS % (AUTO) 0.8 % (0.0-2.0); EOSINOPHILS % (AUTO) 4.3 % (0.0-3.0); HEMATOCRIT 37.9 % (42.0-52.0); HEMOGLOBIN 12.5 G/DL (14.2-18.0); LYMPHOCYTES % (AUTO) 8.8 % (20.0-45.0); MEAN CORPUSCULAR VOLUME 80 FL (80-99); MONOCYTES % (AUTO) 7.5 % (1.0-10.0); NEUTROPHILS % (AUTO) 78.6 % (45.0-75.0); PLATELET COUNT 241 K/UL (150-450); RED BLOOD COUNT 4.73 M/UL (4.70-6.10); RED CELL DISTRIBUTION WIDTH 12.7 % (11.6-14.8)
[2019-08-13 06:13] LABS: ANION GAP 5 mmol/L (5-15); BLOOD UREA NITROGEN 9 mg/dL (7-18); CALCIUM 8.7 MG/DL (8.5-10.1); CARBON DIOXIDE 31 MMOL/L (21-32); CHLORIDE 105 MMOL/L (98-107); POTASSIUM 4.3 MMOL/L (3.5-5.1); SODIUM 141 MMOL/L (136-145)
--- NOTE | 2019-08-13 07:26 | NUR ---
HAND-OFF: Report given to DOMINGO Vyas. Pt in stable condition.
[2019-08-13 08:00] VITALS: BP 111/71
--- NOTE | 2019-08-13 08:00 | NUR ---
NURSE NOTES: Received report from Lazaro Farley RN. pt a/a/o laying in bed sleeping with no signs of distress or other issues at this time. Ileo in place draining to gravity, total rn night output: 570ml. GT in place 5:1 protocol. surgical dressing change by rn night nurse since it was wet. PICC line in place on the right upper arm running D51/4NS+20mEq@125ml/hr. call light within reach, bed in lowest position. side rales up x2. at bedside. I will f/u as needed.
--- NOTE | 2019-08-13 09:43 | General Progress Note ---
Progress Note Progress Note AVSS Did well with clear liquids and gastrostomy 3:3 protocol Abdomen soft, healing nicely. [place] dry. some mucous from stoma Urine 2600 Gastrostomy 790 BCIR ileo 1390 WBC down 9000 BMP-wnl Imp: Improved Plan: BCIR diet Gastrostomy 5:1 protocol d/c IV fluids Mauri Flowers MD Aug 13, 2019 09:43
[2019-08-13] MEDS ORDERED: Lidocaine HCl 2% Jelly 6ml Tube TOPIC PRN (09:45)
[2019-08-13 12:00] VITALS: BP 115/67
[2019-08-13] MEDS ORDERED: NS Irrig 1000ml ONE (12:56)
--- NOTE | 2019-08-13 13:39 | NUR ---
BEVEL FACE STONER AND POLISHERCITY ROUTEMAN SI: ULCERATIVE ULCERATIVE T.98.2 HR 84 RR 19 B/P 115/69 IS: IRON IV CARAFATE PO TORADOL BCR MED/SURG STATUS
[2019-08-13 16:00] VITALS: BP 105/61
[2019-08-13] MEDS ORDERED: HYDROcodone/Acetamin 5/325 tab ORAL PRN (17:45)
--- NOTE | 2019-08-13 19:30 | NUR ---
HAND-OFF: Report given to Belén LANE, pt instable condition with no signs of distress or other issues at this time. - During my shift patient was able to ambulate around the unit x2 with steady gait. - Patient was able to tolerated BCIR diet with no n/v, nor cramping. I&O's Ileostomy: 850-40=738cs GT (5:1 protocol): 25-40=-15ml Urine: 1200ml
--- NOTE | 2019-08-13 19:31 | NUR ---
NURSE NOTES: Received report & pt from DOMINGO Vyas. Pt lying in bed, a&ox4, in room air, family member at bedside. No s/s of acute distress & no c/o pain. Ileo intact & draining to gravity. GT plugged with 5:1 protocol. To be unplugged @ 2100 & plug at 2200; Pt is aware. PICC line intact & S/L'd. Surgical dressing C/D/I. Bed in lowest position, call light within reach. Will continue to monitor.
[2019-08-13 20:00] VITALS: BP 105/60
[2019-08-13] MEDS: Dyna-Hex 2% Top Sol 2oz TOPIC SCH (20:20)
[2019-08-13] MEDS: Iron Sucrose 100 MG in NS 55 ML IV SCH (20:54)
--- NOTE | 2019-08-13 21:00 | NUR ---
NURSE NOTES: Ileostomy dressing changed per pt's request. Stoma site c/d/i, no bleeding. Noted charles & hayes drain.
--- NOTE | 2019-08-14 07:30 | NUR ---
HAND-OFF: Report given to DOMINGO Vyas. Pt in stable condition. Rounds done.
--- NOTE | 2019-08-14 07:53 | NUR ---
NURSE NOTES: Received report from Belén RN, pt a/a/o x4 laying in bed with no signs of distress or other issues at this time. surgical dressing c/d/i, Belén RN changed dressing around 2100 since was wet. Ileostomy bag draining to gravity, total [facility] shift [facility] output:545ml. total urine 500ml. total GT: -25ml. per report pt will start in continues GT plug. still continues in strict I&O's. PICC line on the [facility]. call light within reach, bed in lowest position, side rales up x2. at bedside. I will f/u as needed.
[2019-08-14 08:00] VITALS: BP 116/63
[2019-08-14 12:00] VITALS: BP 119/63
--- NOTE | 2019-08-14 12:58 | General Progress Note ---
Progress Note Progress Note AVSS Feeling okay but no appetite and some early fullness after eating BCIR diet 50-60% of meals abdomen soft, flat, healing nicely. [place] drain removed Urine 1700 BCIR fileo 1300 Plan: Plug gastrostomy continuously Maintain continuous drainage of BCIR f/u labs Mauri Flowers MD Aug 14, 2019 12:58
[2019-08-14] MEDS ORDERED: Ascorbic Acid 500mg tab ORAL PRN (13:15)
--- NOTE | 2019-08-14 13:17 | Cardiology Report ---
APPROVED REPORT EKG Measurement Heart [id number] LA [id number] [id number] Normal sinus rhythm Normal ECG
[2019-08-14] MEDS ORDERED: Simethicone 80mg tab ORAL PRN (15:15)
--- NOTE | 2019-08-14 15:21 | NUR ---
CASE MANAGEMENT: REVIEW 08/14/2019 SI:COMPLICATION OF INTESTINAL POUCH. HYPEROSMOLALITY AND HYPERNATREMIA. T 99.5 HR 98 RR 18 B/P 119/63 SATS 98% ON RA NO LABS TODAY IS:VENOFER IV QHS MED/SURG STATUS PLAN OF CARE: Plug gastrostomy continuously Maintain continuous drainage of BCIR
--- NOTE | 2019-08-14 15:42 | NUR ---
INSURANCE REVIEWS FAXED TO B/S OAWILDA F: [phone] DEPT P: [phone]
[2019-08-14 16:00] VITALS: BP 102/62
[2019-08-14] MEDS ORDERED: NS Irrig 1000ml ONE (16:37)
--- NOTE | 2019-08-14 19:34 | NUR ---
HAND-OFF: Report given to Belén LANE, pt in stable condition. - During my shift pt had one episode of bloating, RN given Simeticone as ordered, RN notified MD. - During my shift pt was able to ambulate around the unit with steady gait. I&O's Total ileostomy= 800-205=609qu Urine: 500ml Total oral intake: 954ml GT: continues plug.
--- NOTE | 2019-08-14 19:35 | NUR ---
NURSE NOTES: Pt awake, alert and oriented x4 lying in bed with no signs of distress. surgical dressing c/d/i. Ileostomy bag draining to gravity, GT clamped. Strict I and O maintained. Continued strict I&O's. PICC line on the [facility], patent, asymptomatic. call light within reach, bed in lowest position, locked, side rails x2. at bedside. Will continue to monitor
[2019-08-14 20:00] VITALS: BP 109/60
[2019-08-14] MEDS: Dyna-Hex 2% Top Sol 2oz TOPIC SCH (20:42)
[2019-08-14] MEDS: Iron Sucrose 100 MG in NS 55 ML IV SCH (20:42)
--- NOTE | 2019-08-14 21:00 | NUR ---
NURSE NOTES: Pt refused Venofer & states it made him nauseous last night. Explained risk & benefits but pt continued to refuse.
[2019-08-15 06:02] LABS: BASOPHILS % (AUTO) 0.6 % (0.0-2.0); HEMATOCRIT 40.4 % (42.0-52.0); HEMOGLOBIN 13.3 G/DL (14.2-18.0); LYMPHOCYTES % (AUTO) 13.3 % (20.0-45.0); MEAN CORPUSCULAR VOLUME 80 FL (80-99); MONOCYTES % (AUTO) 9.5 % (1.0-10.0); NEUTROPHILS % (AUTO) 75.6 % (45.0-75.0); PLATELET COUNT 295 K/UL (150-450); RED BLOOD COUNT 5.04 M/UL (4.70-6.10); RED CELL DISTRIBUTION WIDTH 12.9 % (11.6-14.8); WHITE BLOOD COUNT 7.4 K/UL (4.8-10.8)
[2019-08-15 06:24] LABS: ALANINE AMINOTRANSFERASE 60 U/L (12-78); ALBUMIN 3.1 G/DL (3.4-5.0); ALBUMIN/GLOBULIN RATIO 0.8 (1.0-2.7); ALKALINE PHOSPHATASE 156 U/L (46-116); ANION GAP 8 mmol/L (5-15); ASPARTATE AMINO TRANSFERASE 35 U/L (15-37); BILIRUBIN,TOTAL 0.9 MG/DL (0.2-1.0); BLOOD UREA NITROGEN 10 mg/dL (7-18); CARBON DIOXIDE 29 MMOL/L (21-32); CHLORIDE 102 MMOL/L (98-107); CREATININE 1.1 MG/DL (0.55-1.30); POTASSIUM 4.2 MMOL/L (3.5-5.1); SODIUM 139 MMOL/L (136-145)
--- NOTE | 2019-08-15 07:42 | NUR ---
HAND-OFF: Report given to RN. Jaiden Rounds done. Addendum: 08/15/19 at 0800 by Belén Guardado RN CORRECTION: HAND-OFF: Report given to RN. Isai Rounds done. Addendum: 08/15/19 at 0805 by Belén Guardado RN HAND-OFF: Report given to RN. Leilani Rounds done
--- NOTE | 2019-08-15 07:45 | NUR ---
NURSE NOTES: WALKING ROUNDS DONE WITH OUTGOING RN. PATIENT UP TO CHAIR. FAMILY AT BEDSIDE. QUESTIONS ANSWERED, NEEDS MET. DISCUSSED PLAN OF CARE FOR THE DAY. VERBALIZED UNDERSTANDING. IKE PICC INTACT/ DRSG C/D/I. ILEOSTOMY SITE DRSG C/D/I. OUTPUT THIN AND BROWN IN COLOR. DENIES PAIN. CALL LIGHT WITHIN REACH.
[2019-08-15 08:00] VITALS: BP 101/56
--- NOTE | 2019-08-15 08:44 | General Progress Note ---
Progress Note Progress Note AVSS Not eating well - says Venofer always causes nausea for a day. Eating 40% BCIR diet. Output was very thick but better now and he feels better (less cramps and gas) Abdomen soft, healing nicely Urine 1250 BCIR ileo 1065 WBC 7400 Hgb 13.3 Albumin 3.1 Imp. slowly improving Plan: d/c Venofer protein shakes supplements to diet will d/c gastrostomy later maintain continuous drainage of BCIR Mauri Flowers MD Aug 15, 2019 08:44
[2019-08-15 11:47] VITALS: BP 102/68
[2019-08-15 16:00] VITALS: BP 98/75
--- NOTE | 2019-08-15 17:26 | NUR ---
NURSE NOTES: PATIENT REMAINS STABLE. DENIES N/V/ ABD PAIN AFTER EATING MEALS. AMBULATING INDEPENDENTLY. VSS. AFEBRILE.
[2019-08-15] MEDS ORDERED: NS Irrig 1000ml ONE (17:41)
--- NOTE | 2019-08-15 18:33 | NUR ---
NURSE NOTES: PATIENT REPORTED OF HAVING RESIDUAL EFFECTS FORM RECEIVING NORCO A FEW DAYS AGO. STATES THE NEXT DAY HE NOTICED HIS HEART RATE WOULD INCREASE WITH WALKING IN THE LOW 100'S AND AT REST IN THE 90'S. DENIES SOB. NOTIFIED. CALL BACK RECEIVED.STAT EKG ORDERED. R.T. CALLED TO CARRY OUT ORDER. PATIENT AND FAMILY KEPT INFORMED.
--- NOTE | 2019-08-15 18:50 | NUR ---
NURSE NOTES: UPON PATIENT REQUEST WANTED ORAL TEMP CHECKED. STATES HE FEELS WARM TEMP 101.[address] CHAMPION NOTIFIED. NEW ORDERS RECEIVED. PT/ FAMILY MADE AWARE. ENDORSED TO ONCOMING RN.
--- NOTE | 2019-08-15 19:31 | NUR ---
HAND-OFF: Report given to RAVEN LANE.
--- NOTE | 2019-08-15 19:32 | NUR ---
NURSE NOTES: Received report & pt from DOMINGO Lane. Pt lying in bed, a&ox4, in room air. No s/s of acute distress & no c/o pain. Ileo cath intact & draining to gravity. PICC line intact & S/L'd. Surgical dressing C/D/I. GT dressing to be changed to light dressing tonight. Will draw blood for STAT blood cultures & pt given urine specimen cup for sample. Bed in lowest position, call light within reach. Will continue to monitor.
--- NOTE | 2019-08-15 19:40 | NUR ---
NURSE NOTES: @ 1939 1st set of blood culture bottles sent down to lab. @ 1949 2nd set of blood culture bottles sent down to lab. @ 2034 removed PICC line as ordered by ; Pt tolerated very well. Cath tip intact. Told pt to lie down straight for 30mins. No bleeding noted & will continue to monitor. Tip of cath sent down to lab for culture.
[2019-08-15 20:00] VITALS: BP 124/68
[2019-08-15] MEDS: Dyna-Hex 2% Top Sol 2oz TOPIC SCH (20:00)
--- NOTE | 2019-08-15 21:50 | NUR ---
NURSE NOTES: Urine specimen sent down to lab for UA & urine culture
[2019-08-15 22:32] LABS: APPEARANCE,URINE SLIGHTLY CLOUDY; BILIRUBIN, URINE NEGATIVE (NEGATIVE); COLOR,URINE YELLOW; GLUCOSE, URINE (UA) NEGATIVE (NEGATIVE); KETONES,URINE 2+ (NEGATIVE); NITRITE,URINE NEGATIVE (NEGATIVE); PH,URINE 5 (4.5-8.0); PROTEIN,URINE 2+ (NEGATIVE); UROBILINOGEN,URINE NORMAL MG/DL (0.0-1.0)
[2019-08-15 22:33] LABS: LEUKOCYTE ESTERASE ,URINE TRACE (NEGATIVE)
[2019-08-16 00:30] VITALS: BP 110/57
[2019-08-16 04:00] VITALS: BP 106/63
[2019-08-16 05:41] LABS: HEMATOCRIT 43.9 % (42.0-52.0); HEMOGLOBIN 14.4 G/DL (14.2-18.0); MEAN CORPUSCULAR VOLUME 82 FL (80-99); PLATELET COUNT 226 K/UL (150-450); RED BLOOD COUNT 5.38 M/UL (4.70-6.10); RED CELL DISTRIBUTION WIDTH 12.2 % (11.6-14.8); WHITE BLOOD COUNT 8.4 K/UL (4.8-10.8)
[2019-08-16 06:19] LABS: ALANINE AMINOTRANSFERASE 65 U/L (12-78); ALBUMIN 3.2 G/DL (3.4-5.0); ALBUMIN/GLOBULIN RATIO 0.7 (1.0-2.7); ALKALINE PHOSPHATASE 235 U/L (46-116); ANION GAP 9 mmol/L (5-15); ASPARTATE AMINO TRANSFERASE 39 U/L (15-37); BILIRUBIN,TOTAL 1.2 MG/DL (0.2-1.0); BLOOD UREA NITROGEN 15 mg/dL (7-18); CALCIUM 9.4 MG/DL (8.5-10.1); CARBON DIOXIDE 28 MMOL/L (21-32); CHLORIDE 98 MMOL/L (98-107); CREATININE 1.3 MG/DL (0.55-1.30); POTASSIUM 4.7 MMOL/L (3.5-5.1); SODIUM 135 MMOL/L (136-145)
[2019-08-16 06:49] LABS: BILIRUBIN,DIRECT 0.6 MG/DL (0.0-0.3)
[2019-08-16] MEDS ORDERED: Isovue-300 100ml vial INJ PRN (07:15)
--- NOTE | 2019-08-16 07:19 | General Progress Note ---
Progress Note Progress Note T to 102.8 last night - no new abdominal or other complaints. Blood C&S x2 and PIC removed with tip cultured. U/A - no sign of UTI. C&S sent Abdomen soft Urine 1450 BCIR ileo 1050 WBC 8400 Hgb 14.4 BUN 15 up Cr 1.3 up IMp.Fever ? etiology Plan: PIC removed last night STAT CT scan abd+pelvis with oral ad IV contrast IV fluids, npo Maintain continuous drainage of BCIR Mauri Flowers MD Aug 16, 2019 07:19
--- NOTE | 2019-08-16 07:25 | NUR ---
HAND-OFF: Report given to DOMINGO Vyas. Rounds done.
[2019-08-16 08:00] VITALS: BP 105/61
--- NOTE | 2019-08-16 08:00 | NUR ---
NURSE NOTES: Received report from Belén LANE, pt a/a/o x4 laying in bed with no signs of distress or other issues at this time. surgical dressing dry and intact, per MD we will start new peripheral IV on the right FA gauge#22 running D51/2NS@125ml/hr. ileostomy bag in place draining to gravity. total ileostomy out put during material handler 2nd shift:230ml. total urine out put: 450ml Addendum: 08/16/19 at 1000 by Lilliam Rees RN plan for CT abd/pelvis. pt was able to tolerate the contrast with no signs of n/v. call light within reach, bed in lowest position, side rales up x2. at bed side. I will f/u as needed.
[2019-08-16] MEDS: D5 1/2NS 1,000 ML IV SCH ×4 (08:29→23:44)
[2019-08-16] MEDS ORDERED: NS Irrig 1000ml ONE (09:29)
--- NOTE | 2019-08-16 11:21 | Diagnostic Imaging Report ---
Indication: Abdominal pain Technique: Continuous helical transaxial imaging of the abdomen and pelvis was obtained from the lung bases to the pubic symphysis during intravenous contrast administration. Coronal 2-D reformats were also obtained. Study obtained in a Siemens sensation [address] Automatic Exposure Control was utilized. Total Dose length Product (DLP): 604.[address] Dose Index Volume (CTDIvol): 11.22 mGy Comparison: None Findings: Total colectomy noted. There is a continent ileostomy present. The catheter is well situated within the pouch which is opacified by contrast. Opacified stomach and small bowel appear normal. There is no abscess. There is no ascites. There is thickening of the wall the urinary bladder which is relatively nondistended. The spleen is enlarged spanning 17 cm. The gallbladder, pancreas and liver appear normal. There are tiny hypodensities in both kidneys too small to characterize on this study. Small amount of air is noted within the ventral abdominal wall likely related to recent surgery. Correlate with the timing of this finding. IMPRESSION: No acute findings appreciated. Status post total colectomy. Continent ileostomy appears unremarkable. No evidence of bowel obstruction, abscess or free fluid. Trace air in the ventral abdominal wall probably on the basis of recent surgery. Correlate with the timing of this finding. Splenomegaly Tiny bilateral renal hypodensities too small to characterize The CT scanner at [facility] is accredited by the [employer] and the scans are performed using dose optimization techniques as appropriate to a performed exam including Automatic Exposure control.
--- NOTE | 2019-08-16 11:30 | NUR ---
NURSE NOTES: Test Engineer Waleska called to inform that patient's blood cultures came back with: Gram negative rods, RN called to notify Dr. Flowers of the above. RN will carryon new orders.
[2019-08-16 12:00] VITALS: BP 111/67
[2019-08-16] MEDS ORDERED: Zoysn 3.37gm in NS 100ML IVPB SCH (12:00)
--- NOTE | 2019-08-16 14:11 | Infectious Diseases Prog Note ---
Assessment/Plan Assessment/Plan Full consult dictated: A) 1) gram neg bacteremia, sepsis, ? line source, fevers, hx leukocytosis 2) picc line removed and cath tip sent 3) s/p Harris continent intestinal reservoir 4) F/U CT without abscess and ua benign P) 1) meropenem and amikacin until identification of gram negative 2) f/u labs, cultures 3) thank you Subjective Allergies: Coded Allergies: NO KNOWN ALLERGIES (Verified Allergy, Unknown, 08/04/19) Objective Vital Signs Last 24 Hour Vital Signs Date Time Temp Pulse Resp B/P (MAP) Pulse Ox O2 Delivery O2 Flow Rate FiO2 08/16/19 12:00 99.1 98 20 111/67 (82) 98 08/16/19 09:00 Room Air 08/16/19 08:00 99.2 98 21 105/61 (76) 98 08/16/19 04:00 99.1 89 17 106/63 (77) 98 08/16/19 01:00 100.6 08/16/19 00:57 100.6 08/16/19 00:30 101.4 109 18 110/57 (74) 97 08/15/19 21:00 Room Air 08/15/19 20:00 102.8 100 19 124/68 (86) 98 08/15/19 18:47 101.2 08/15/19 16:00 98.8 89 21 98/75 (83) 98 Height (Feet): 6 Height (Inches): 0.00 Weight (Pounds): 161 Microbiology Date/Time Source Procedure Growth Status 08/15/19 19:50 Blood Blood Culture - Preliminary Resulted 08/15/19 19:35 Blood Blood Culture - Preliminary Resulted Laboratory Tests Test 08/15/19 21:50 08/16/19 05:05 Urine Color Yellow Urine Appearance Slightly cloudy Urine pH 5 (4.5-8.0) Urine Specific [place] 1.020 (1.005-1.035) Urine Protein 2+ (NEGATIVE) H Urine Glucose (UA) Negative (NEGATIVE) Urine Ketones 2+ (NEGATIVE) H Urine Blood 1+ (NEGATIVE) H Urine Nitrite Negative (NEGATIVE) Urine Bilirubin Negative (NEGATIVE) Urine Urobilinogen Normal MG/DL (0.0-1.0) Urine Leukocyte Esterase Trace (NEGATIVE) H Urine RBC 0-2 /HPF (0 - 0) H Urine WBC 0-2 /HPF (0 - 0) Urine Squamous Epithelial Cells None /LPF (NONE/OCC) Urine Bacteria Few /HPF (NONE) Urine Mucus Few /LPF (NONE/OCC) H White Blood Count 8.4 K/UL (4.8-10.8) Red Blood Count 5.38 M/UL (4.70-6.10) Hemoglobin 14.4 G/DL (14.2-18.0) Hematocrit 43.9 % (42.0-52.0) Mean Corpuscular Volume 82 FL (80-99) Mean Corpuscular Hemoglobin 26.7 PG (27.0-31.0) L Mean Corpuscular Hemoglobin Concent 32.7 G/DL (32.0-36.0) Red Cell Distribution Width 12.2 % (11.6-14.8) Platelet Count 226 K/UL (150-450) Mean Platelet Volume 6.0 FL (6.5-10.1) L Neutrophils (%) (Auto) % (45.0-75.0) Lymphocytes (%) (Auto) % (20.0-45.0) Monocytes (%) (Auto) % (1.0-10.0) Eosinophils (%) (Auto) % (0.0-3.0) Basophils (%) (Auto) % (0.0-2.0) Sodium Level 135 MMOL/L (136-145) L Potassium Level 4.7 MMOL/L (3.5-5.1) Chloride Level 98 MMOL/L (98-107) Carbon Dioxide Level 28 MMOL/L (21-32) Anion Gap 9 mmol/L (5-15) Blood Urea Nitrogen 15 mg/dL (7-18) Creatinine 1.3 MG/DL (0.55-1.30) Estimat Glomerular Filtration Rate > 60 mL/min (>60) Glucose Level 86 MG/DL (74-106) Calcium Level 9.4 MG/DL (8.5-10.1) Total Bilirubin 1.2 MG/DL (0.2-1.0) H Direct Bilirubin 0.6 MG/DL (0.0-0.3) H Aspartate Amino Transf (AST/SGOT) 39 U/L (15-37) H Alanine Aminotransferase (ALT/SGPT) 65 U/L (12-78) Alkaline Phosphatase 235 U/L (46-116) H Total Protein 7.5 G/DL (6.4-8.2) Albumin 3.2 G/DL (3.4-5.0) L Globulin 4.3 g/dL Albumin/Globulin Ratio 0.7 (1.0-2.7) L Current Medications Medications (Trade) Dose Ordered Sig/Britney Route PRN Reason Start Time Stop Time Status Last Admin Dose Admin Acetaminophen (Tylenol) 650 mg Q4H PRN ORAL Mild Pain/Temp > 100.2 08/16/19 07:18 09/15/19 07:17 Ascorbic Acid (Vitamin C) 500 mg NEEDED PRN ORAL Constipation 08/14/19 13:15 09/13/19 13:14 08/14/19 13:14 Barium Sulfate (Readi-Cat 2) 450 ml NOW PRN ORAL Radiology Procedure 08/16/19 07:15 08/18/19 07:13 Chlorhexidine Gluconate (Barb-Hex 2%) 1 applic DAILY@2000 TOPIC 08/04/19 20:00 09/03/19 19:59 08/14/19 20:42 Dextrose (Dextrose 50%) 25 ml Q30M PRN IV Hypoglycemia 08/06/19 14:15 09/05/19 14:14 Dextrose (Dextrose 50%) 50 ml Q30M PRN IV Hypoglycemia 08/06/19 14:15 09/05/19 14:14 Dextrose/Sodium Chloride 1,000 ml @ 125 mls/hr Q8H IV 08/16/19 07:15 09/15/19 07:14 08/16/19 08:29 Iopamidol (Isovue-300 100ml) 100 ml NOW PRN INJ Radiology Procedure 08/16/19 07:15 08/18/19 07:14 Lidocaine HCl (Xylocaine Jelly 2%) 1 applic NEEDED PRN TOPIC For Pain 08/13/19 09:45 09/12/19 09:44 Ondansetron HCl (Zofran) 4 mg Q4H PRN IVP Nausea & Vomiting 08/05/19 12:30 09/04/19 12:29 08/06/19 20:08 Piperacillin Sod/ Tazobactam Sod 3.375 gm/Sodium Chloride 110 ml @ 27.5 mls/hr Q8H IVPB 08/16/19 12:00 08/23/19 11:59 08/16/19 12:23 Simethicone (Mylicon) 80 mg Q6H PRN ORAL GAS, abd bloating 08/14/19 15:15 09/13/19 15:14 08/14/19 15:10 Sucralfate (Carafate) 1 gm Q4H PRN ORAL Ileo bleeding 08/12/19 07:00 09/10/19 07:29 Temazepam (Restoril) 7.5 mg HSPRN PRN ORAL Insomnia 08/14/19 20:00 08/21/19 19:59 Gaudencio Page MD Aug 16, 2019 14:11
[2019-08-16] MEDS ORDERED: Amikacin Rx to dose MISC PRN (14:15)
--- NOTE | 2019-08-16 14:42 | NUR ---
WARP HANGERCONVEYOR TENDER CONCRETE MIXING PLANT SI: POD#11 FEVER T. 101.4 HR 109 RR 18 B/P 110/57 NA 135 ALK PHOS [address] ABD/PEL= NO ACUTE PROCESS IS: MEROPENEM IV AMIKACIN IV IVF D5NS @ 125ML/HR CARAFATE PO MED/SURG STATUS
--- NOTE | 2019-08-16 15:11 | NUR ---
*-* INSURANCE *-* ALL CLINICALS AND REVIEWS HAVE BEEN FAXED TO: B/S DERIC BARRERA FAX CLINICALS TO [phone] [place] FAX CLINICALS BEFORE 08/10/19 DEPT P: [phone] REF# [id number]
[2019-08-16 16:00] VITALS: BP 103/65
[2019-08-16] MEDS: Amikacin 1,000 MG in NS 110 ML IV SCH (16:23)
--- NOTE | 2019-08-16 18:33 | Cardiology Report ---
APPROVED REPORT EKG Measurement Heart [id number] Normal sinus rhythm Normal ECG
--- NOTE | 2019-08-16 19:34 | NUR ---
HAND-OFF: Report given to Ata LANE, pt in stable condition. - During my shift pt was able to tolerate his diet only 25-50%. I&O's Ileostomy out put: 1000-95=385qm urine out put: 850ml Oral intake: 1369ml
--- NOTE | 2019-08-16 19:57 | NUR ---
NURSE NOTES: Report taken from DOMINGO Vyas. He is awake and in bed, A&Ox4, family at bedside. RN endorsed that patient had an emotional day after hearing lab results. Spoke with patient and he is accepting of our care and willing to continue. Will see if patient would like psych consult. Skin is intact. IV site c/d/i and patent running D51/2@125mls/hr. Antibiotics to be run. No complaints of pain. Ileo draining to gravity, green fluid. Bed in lowest position, call light within reach.
[2019-08-16 20:00] VITALS: BP 107/60
[2019-08-16] MEDS: Dyna-Hex 2% Top Sol 2oz TOPIC SCH (20:00)
--- NOTE | 2019-08-16 22:15 | Consultation ---
DATE OF CONSULTATION: 08/16/2019 INFECTIOUS DISEASE CONSULTATION CONSULTING PHYSICIAN: Gaudencio Page M.D. ATTENDING PHYSICIAN: Mauri Flowers M.D. REFERRING PHYSICIAN: Mauri Flowers M.D. REASON FOR CONSULTATION: Gram-negative bacteremia, sepsis, fevers, possible line infection, and history of leukocytosis. CHIEF COMPLAINT: The patient's chief complaint coming into the hospital was ulcerative colitis and malfunctioning ileoanal pouch. HISTORY OF PRESENT ILLNESS: This is a very pleasant 28-year-old male, who comes in to [facility] with malfunctioning ileoanal pouch with a history of ulcerative colitis. The patient is status post Harris continent intestinal reservoir or BCIR surgery. The patient also had status post segmental small-bowel resection and laparotomy and resection of the failed ileoanal J-pouch and distal proctectomy. The patient now as of yesterday had a fever of 102.8. The patient was also tachycardic with a heart rate as high as 109. The patient's workup shows that he has gram-negative bacilli or gram-negative rods in the blood. The patient likely has gram-negative sepsis. Infectious Disease consultation is requested. The patient was empirically started on Zosyn. I placed him on meropenem and amikacin. I discontinued the Zosyn. Identification of the Gram-negative organisms in the blood are pending. The patient did have a CT scan of the abdomen and pelvis today, which showed no evidence of abscess and no acute findings. The patient's PICC line was removed. Cath tip is pending and urinalysis was benign or negative for UTI or not suggestive of UTI. Case discussed with the patient and his at the bedside and the RN. REVIEW OF SYSTEMS: CONSTITUTIONAL: Main issue as of yesterday was tachycardic with fevers and chills and sweats, but currently, he has low-grade fevers. No chills currently. HEAD AND NECK: No head pain. No neck pain. CARDIAC: No chest pain. GASTROINTESTINAL: No nausea, vomiting, abdominal pain, or diarrhea. GENITOURINARY: He has no Bains. PULMONARY: No congestion or shortness of breath. SKIN: No rash or itching. EXTREMITIES: No extremity pain. NEUROLOGIC: No seizures. No rash or itching. He has a PICC line that was removed. He has no Bains. He has a drainage from the surgery. Generalized fatigue. No focal weakness. PAST MEDICAL HISTORY: The patient has a past medical history of the following. The patient has a past medical history of ulcerative colitis, history of total colectomy, history of partial proctectomy, history of diverting ileostomy, and history of ileoanal J-pouch that failed. No history of diabetes or hypertension. ALLERGIES: No antibiotic allergies per the records. However, it is unclear if he has some type of reaction to Cipro where he gets numbness and tingling. FAMILY HISTORY: Noncontributory. SOCIAL HISTORY: Negative for smoking, alcohol, drug abuse. MEDICATIONS: Upon reviewing the MAR, he is on the following medications. He is on meropenem and amikacin. Amikacin per pharmacy dosing. Acetaminophen, barium sulfate, temazepam, , ascorbic acid, sucralfate, IV fluids, and Zofran. Outside medications were noted and reconciliated. PHYSICAL EXAMINATION: VITAL SIGNS: Currently, temperature 99.1, pulse rate 98, respiratory rate 20, blood pressure 111/67, and saturation 98%. Temperature today was 100.6. T-max 102.8 yesterday, heart rate was as high as 109 GENERAL: Alert, responsive, and oriented x3. No acute distress. Nontoxic. HEAD AND NECK: Oral exam, no thrush. Eye exam, no icterus. Normocephalic. HEART: Regular. No gallop or murmur. ABDOMEN: Soft. Positive bowel sounds. Nontender. LUNGS: Clear bilaterally. No rhonchi or rales. Incision site is clean and dry. SKIN: No other rash. MUSCULOSKELETAL: No effusion. Legs are without cellulitis. PERIPHERAL VASCULAR: No cyanosis or gangrene. : No Bains. He has a surgical drain from the Harris continent reservoir. NEUROLOGIC: Intact. Alert and oriented x3. No CVA tenderness. LABORATORY DATA: Lab data is as follows. Creatinine is 1.3. White count 8.4 and hemoglobin 14.4. White count has been as high as 20.4 during the hospitalization. However, now it is normal at 8.4. LFTs were noted. Cath tip of the PICC line is pending. The CT scan of the abdomen and pelvis showed the following. It showed no acute findings. No abscess. Status post total colectomy and continent ileostomy were unremarkable. Chest x-ray previously had no acute process. CULTURES: Blood cultures with multiple bottles of gram-negative rods. Identification is pending. Urinalysis was 0 to 2 white cells. ASSESSMENT/PLAN: 1. The patient has Gram-negative bacteremia and likely gram-negative sepsis, fevers, and SIRS criteria. The patient has history of leukocytosis, however, that is resolved. The patient's T-max was 102.8 and he was tachycardic. At this time because of the risk and the problems with ESBL organisms in the community, I will place the patient on meropenem and amikacin and discontinue Zosyn. Continue meropenem and amikacin for gram-negative bacteremia and sepsis pending culture results. Monitor laboratories. Monitor creatinine closely. Check cath tip, PICC line which could be the source. CT scan showed no obvious source of gram-negative bacteremia. UA was benign for UTI as a source. This was unlikely urinary source. The patient does not have any shortness of breath. Lungs are clear. I doubt he has any pneumonic process or pneumonia process. Continue meropenem and amikacin for gram-negative bacteremia. Check catheter tip. PICC line was removed. Once we know the identification and sensitivities of blood cultures, we can adjust antibiotics accordingly. 2. History of ulcerative colitis. 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 Management per Dr. Flowers. 3. History of laparotomy and resection of failed ileoanal J-pouch and prostatectomy and subsegmental small-bowel resection. 4. History of multiple abdominal surgeries. 5. Ulcerative colitis. Management per Dr. Flowers and consultants. 6. History of colectomy and also diverting ileostomy. 7. Possible reaction to Cipro with tingling and numbness. No other drug allergies. 8. Family history is noncontributory 9. Social history is negative. 10. MAR was noted. 11. Case was discussed with RN. 12. Case discussed with the patient and his . 13. Continue treatment per primary consultants. Thank you Dr. Flowers for this consult. I will follow with you. Gaudencio Page M.D. DR: FELI JOB#: [id number] CC:
[2019-08-17 00:01] VITALS: BP 89/52
[2019-08-17 03:55] VITALS: BP 89/57
[2019-08-17 04:15] LABS: BASOPHILS % (AUTO) 0.8 % (0.0-2.0); HEMATOCRIT 40.5 % (42.0-52.0); HEMOGLOBIN 13.4 G/DL (14.2-18.0); LYMPHOCYTES % (AUTO) 17.9 % (20.0-45.0); MEAN CORPUSCULAR VOLUME 81 FL (80-99); MONOCYTES % (AUTO) 10.6 % (1.0-10.0); NEUTROPHILS % (AUTO) 69.7 % (45.0-75.0); PLATELET COUNT 256 K/UL (150-450); RED BLOOD COUNT 5.01 M/UL (4.70-6.10); WHITE BLOOD COUNT 5.3 K/UL (4.8-10.8)
[2019-08-17 04:39] LABS: ALANINE AMINOTRANSFERASE 57 U/L (12-78); ALBUMIN 3.1 G/DL (3.4-5.0); ALBUMIN/GLOBULIN RATIO 0.7 (1.0-2.7); ALKALINE PHOSPHATASE 251 U/L (46-116); ANION GAP 9 mmol/L (5-15); ASPARTATE AMINO TRANSFERASE 31 U/L (15-37); BILIRUBIN,TOTAL 0.6 MG/DL (0.2-1.0); BLOOD UREA NITROGEN 8 mg/dL (7-18); CARBON DIOXIDE 29 MMOL/L (21-32); CHLORIDE 99 MMOL/L (98-107); CREATININE 1.1 MG/DL (0.55-1.30); SODIUM 137 MMOL/L (136-145)
--- NOTE | 2019-08-17 07:09 | NUR ---
HAND-OFF: Report given to DOMINGO Huerta. Patient is awake, VS stable. Addendum: 08/17/19 at 0744 by Ata [place] RN Patient vitals showed improvement through intake counselor. Stated that he is feeling much better and less anxious than yesterday. Talk with patient and explain his personal care when possible. Outputs for night below: Ileo: 545cc UO: 1350cc
--- NOTE | 2019-08-17 07:51 | NUR ---
NURSE NOTES: Pt awake verbalized generalized mild pain at 2/10. Refused pain medication at this time. Encouraged to inform job specification writer if pain level increases , for comfort. Girlfriend is at bedside. Primary focus will be monitor pt temperature , 2 to infection. Per report of outgoing nurse temperature was elevated at 102.8. Pt appears quiet, minimal facial expression, and eye contact. Current plan of care will be followed.
[2019-08-17 08:00] VITALS: BP 99/61
[2019-08-17] MEDS: D5 1/2NS 1,000 ML IV SCH ×2 (09:37→17:28)
--- NOTE | 2019-08-17 10:40 | Infectious Diseases Prog Note ---
Assessment/Plan Assessment/Plan ASSESSMENT/PLAN: 1. gram neg bacteremia, sepsis, fevers, hx leukocytosis, ? line infection, ua benign, CT A/P - NAD, no absces - meropenem and amikacin - f/u on bc ID/sensitivities, check cath tip - line removed - monitor labs - clinically better 2. History of ulcerative colitis. 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 Management per Dr. Flowers. 3. History of laparotomy and resection of failed ileoanal J-pouch and prostatectomy and subsegmental small-bowel resection. 4. History of multiple abdominal surgeries. 5. Ulcerative colitis. Management per Dr. Flowers and consultants. 6. History of colectomy and also diverting ileostomy. 7. Possible reaction to Cipro with tingling and numbness. No other drug allergies. 8. Family history is noncontributory 9. Social history is negative. 10. MAR was noted. 11. Case was discussed with RN. 12. Case discussed with the patient and his . 13. Continue treatment per primary consultants. Subjective Constitutional: Reports: other - fevers and chills improved; Denies: fever HEENT: Denies: congestion Respiratory: Denies: shortness of breath Cardiovascular: Denies: chest pain Gastrointestinal/Abdominal: Denies: nausea, vomiting, diarrhea Genitourinary: Denies: dysuria, hematuria, frequency Neurologic: Denies: headache Psychiatric: Denies: depression Skin: Denies: rash Hematologic: Denies: bleeding Musculoskeletal: Denies: pain Allergies: Coded Allergies: NO KNOWN ALLERGIES (Verified Allergy, Unknown, 08/04/19) Objective Vital Signs Last 24 Hour Vital Signs Date Time Temp Pulse Resp B/P (MAP) Pulse Ox O2 Delivery O2 Flow Rate FiO2 08/17/19 08:00 98.7 88 20 99/61 (74) 100 08/17/19 03:55 97.6 70 18 89/57 (68) 98 08/17/19 00:01 99.3 81 17 89/52 (64) 98 08/16/19 22:16 99.2 08/16/19 21:00 Room Air 08/16/19 20:00 100.1 92 18 107/60 (76) 99 08/16/19 16:00 100.0 92 21 103/65 (78) 99 08/16/19 12:00 99.1 98 20 111/67 (82) 98 Height (Feet): 6 Height (Inches): 0.00 Weight (Pounds): 161 General Appearance: no acute distress HEENT: normocephalic, atraumatic, anicteric, mucous membranes moist Respiratory/Chest: lungs clear, normal breath sounds, no respiratory distress, no accessory muscle use Cardiovascular: normal rate, regular rhythm, no gallop/murmur, no JVD Abdomen: normal bowel sounds, soft, non tender, no organomegaly, non distended Genitourinary: other - no redmond Extremities: no cyanosis Skin: no rash Neurologic/Psychiatric: county coroner II-XII grossly normal, alert, oriented x 3, responsive Lymphatic: no neck adenopathy Musculoskeletal: no effusion Objective Chest x-ray - nad, report noted CT scan of abdomen and pelvis: IMPRESSION: No acute findings appreciated. Status post total colectomy. Continent ileostomy appears unremarkable. No evidence of bowel obstruction, abscess or free fluid. Trace air in the ventral abdominal wall probably on the basis of recent surgery. Correlate with the timing of this finding. Splenomegaly Tiny bilateral renal hypodensities too small to characteriz Microbiology Date/Time Source Procedure Growth Status 08/15/19 19:50 Blood Blood Culture - Preliminary Gram Negative Bacillus 1 Resulted 08/15/19 19:35 Blood Blood Culture - Preliminary Gram Negative Bacillus 1 Resulted 08/15/19 20:30 Other(Specify in comment) Catheter Tip Culture - Preliminary Resulted 08/15/19 21:50 Urine,Clean Catch Urine Culture - Preliminary Resulted Laboratory Tests Test 08/17/19 04:05 White Blood Count 5.3 K/UL (4.8-10.8) Red Blood Count 5.01 M/UL (4.70-6.10) Hemoglobin 13.4 G/DL (14.2-18.0) L Hematocrit 40.5 % (42.0-52.0) L Mean Corpuscular Volume 81 FL (80-99) Mean Corpuscular Hemoglobin 26.7 PG (27.0-31.0) L Mean Corpuscular Hemoglobin Concent 33.0 G/DL (32.0-36.0) Red Cell Distribution Width 12.0 % (11.6-14.8) Platelet Count 256 K/UL (150-450) Mean Platelet Volume 5.7 FL (6.5-10.1) L Neutrophils (%) (Auto) 69.7 % (45.0-75.0) Lymphocytes (%) (Auto) 17.9 % (20.0-45.0) L Monocytes (%) (Auto) 10.6 % (1.0-10.0) H Eosinophils (%) (Auto) 1.0 % (0.0-3.0) Basophils (%) (Auto) 0.8 % (0.0-2.0) Sodium Level 137 MMOL/L (136-145) Potassium Level 4.0 MMOL/L (3.5-5.1) Chloride Level 99 MMOL/L (98-107) Carbon Dioxide Level 29 MMOL/L (21-32) Anion Gap 9 mmol/L (5-15) Blood Urea Nitrogen 8 mg/dL (7-18) Creatinine 1.1 MG/DL (0.55-1.30) Estimat Glomerular Filtration Rate > 60 mL/min (>60) Glucose Level 117 MG/DL (74-106) H Calcium Level 9.0 MG/DL (8.5-10.1) Total Bilirubin 0.6 MG/DL (0.2-1.0) Aspartate Amino Transf (AST/SGOT) 31 U/L (15-37) Alanine Aminotransferase (ALT/SGPT) 57 U/L (12-78) Alkaline Phosphatase 251 U/L (46-116) H Total Protein 7.5 G/DL (6.4-8.2) Albumin 3.1 G/DL (3.4-5.0) L Globulin 4.4 g/dL Albumin/Globulin Ratio 0.7 (1.0-2.7) L Random Amikacin Level 2.7 ug/mL Current Medications Medications (Trade) Dose Ordered Sig/Britney Route PRN Reason Start Time Stop Time Status Last Admin Dose Admin Acetaminophen (Tylenol) 650 mg Q4H PRN ORAL Mild Pain/Temp > 100.2 08/16/19 07:18 09/15/19 07:17 08/16/19 21:46 Amikacin Protocol (Amikacin pharmacy to dose) 1 ea DAILY PRN MISC Per rx protocol 08/16/19 14:15 09/15/19 14:14 Amikacin Sulfate 1000 mg/Sodium Chloride 114 ml @ 114 mls/hr Q24H IV 08/16/19 16:00 08/23/19 15:59 08/16/19 16:23 Ascorbic Acid (Vitamin C) 500 mg NEEDED PRN ORAL Constipation 08/14/19 13:15 09/13/19 13:14 08/14/19 13:14 Barium Sulfate (Readi-Cat 2) 450 ml NOW PRN ORAL Radiology Procedure 08/16/19 07:15 08/18/19 07:13 Chlorhexidine Gluconate (Barb-Hex 2%) 1 applic DAILY@2000 TOPIC 08/04/19 20:00 09/03/19 19:59 08/14/19 20:42 Dextrose (Dextrose 50%) 25 ml Q30M PRN IV Hypoglycemia 08/06/19 14:15 09/05/19 14:14 Dextrose (Dextrose 50%) 50 ml Q30M PRN IV Hypoglycemia 08/06/19 14:15 09/05/19 14:14 Dextrose/Sodium Chloride 1,000 ml @ 125 mls/hr Q8H IV 08/16/19 07:15 09/15/19 07:14 08/17/19 09:37 Iopamidol (Isovue-300 100ml) 100 ml NOW PRN INJ Radiology Procedure 08/16/19 07:15 08/18/19 07:14 Lidocaine HCl (Xylocaine Jelly 2%) 1 applic NEEDED PRN TOPIC For Pain 08/13/19 09:45 09/12/19 09:44 Meropenem 1 gm/ Sodium Chloride 100 ml @ 200 mls/hr Q8HR IVPB 08/16/19 22:00 08/21/19 21:59 08/17/19 05:51 Ondansetron HCl (Zofran) 4 mg Q4H PRN IVP Nausea & Vomiting 08/05/19 12:30 09/04/19 12:29 08/06/19 20:08 Simethicone (Mylicon) 80 mg Q6H PRN ORAL GAS, abd bloating 08/14/19 15:15 09/13/19 15:14 08/14/19 15:10 Sucralfate (Carafate) 1 gm Q4H PRN ORAL Ileo bleeding 08/12/19 07:00 09/10/19 07:29 Temazepam (Restoril) 7.5 mg HSPRN PRN ORAL Insomnia 08/14/19 20:00 08/21/19 19:59 Gaudencio Page MD Aug 17, 2019 10:40
[2019-08-17 12:00] VITALS: BP 99/58
--- NOTE | 2019-08-17 12:43 | NUR ---
MEDICAL CENTER DIRECTORFIELD ENGINEER SI; POD#12 T. 98.8 HR 84 RR 21 B/P 99/58 RA 98% ALK PHOS 251 IS: AMIKACIN IV MEROPENEM IV IVF D5NS@ 125ML/HR MED/SURG STATUS
--- NOTE | 2019-08-17 12:48 | NUR ---
NURSE NOTES: Pt awaiting Dr Flowers eager to start intubating. Drainage bag has some presence of air, pt currently eating , unable to flush at this time. Pt states he does not have much of an appetite, and eats slow. Well calculated intake when pt is done. Urine output remains light hans, no odor or sediment 350 cc urine. Pt laughing mood uplifted. Denies pain or sensation of fullness
--- NOTE | 2019-08-17 14:04 | General Progress Note ---
Progress Note Progress Note T max 100.1 overnight. Eating BCIR diet but not much appetite.. Episode of bleeding via Harris pouch catheter this afternoon - will instill carafate Abdomen soft, well healed Urine 2200 BCIR ileo 1465 No leukocytosis Alk phosphatase rising 251 Albumin 3.1 (has refused TPN and Venofer during his stay) Imp: Gram negative bacteremia on Meropenem and Amikacin - PIC tip culture no growth so far. Urine negative Likely source is micro-leak from Harris pouch that has sealed Plan: Maintain continuous drainage of Harris continent ileostomy pouch IV antibiotics May need f/u CT scan or pouchogram XRay before starting self-intubations Mauri Flowers MD Aug 17, 2019 14:04
--- NOTE | 2019-08-17 14:43 | NUR ---
RD ASSESSMENT & RECOMMENDATIONS SEE CARE ACTIVITY FOR COMPLETE ASSESSMENT DAILY ESTIMATED NEEDS: Needs based on Surgery, wt loss 75kg 25-30 kcals/kg 9519-7242 total kcals 1-2 g protein/kg 75-150 g total protein 25-30 mL/kg 8453-1756 total fluid mLs NUTRITION DIAGNOSIS: Altered GI fxn r/t UC and new ileo as evidenced by s/p J pouch take down w/ creation of continent ileo, now resolved ileus, diet advanced from CLD to BCIR low fiber/ low residue. CURRENT DIET:Now BCIR PO DIET RECOMMENDATIONS: DIET ADVANCE PER MD ADDITIONAL RECOMMENDATIONS: 1) Provided pt w/ BCIR diet edu 2) Obtain a standing weight as able 3) Monitor tolerance to diet 4) Lytes w/ ileo
[2019-08-17 16:00] VITALS: BP 100/62
--- NOTE | 2019-08-17 16:01 | NUR ---
NURSE NOTES: During flushing deep red blood noted in tubing. " That is not blood I had grape juice" Bottoming Room Supervisor took a towel and wiped tip of drainage bag. Small clots noted
--- NOTE | 2019-08-17 16:18 | NUR ---
NURSE NOTES: cont. Ileostomy output was 650 , emptied due to bag inflating substantially with gas, output dark brown , no odor. Ileostomy output , thin in consistency. Brim Plater reported presence of blood in tubing to Dr Flowers. Dr Flowers assessed pt and informed him that intubation will not occur today. Charge Nurse present in room. Ileostomy drainage system continued, by gravity. Resident became upset. Per his statement he has been waiting to start intubation since yesterday. Provided with antibiotic, no noted adverse effects related to treatment noted. Left arm has minimal discoloration from picc line adhesive. No swelling or redness noted. IV line remains patent . Has not had a fever this shift upon this writing reported temp 1600 98.5. Abdominal sounds are present. Left side of abdomen slightly distended. Steri strips in place no dehiscence noted incision does not have ant drainage. Left area of abdomen previous site of gtube , covered with gauze . Dr Flowers changed dressing 4x4 abdominal pad and silk tape. carafate given per order of MD, with 60 cc flushing. Drainage system flushed at 1600 with 30cc , no active bleeding at this time. Ileostomy draining well , denies abdominal pain, nausea . Will continued to be monitored Addendum: 08/17/19 at 1643 by Deanna Chan RN correction any discharge
[2019-08-17] MEDS: Amikacin 1,000 MG in NS 110 ML IV SCH (17:12)
--- NOTE | 2019-08-17 18:27 | NUR ---
NURSE NOTES: Pt ambulated frequently > 6 times down to elevator and around nurses station. States he does not have an appetite after "fasting" I drinking the protein shakes. Charge Nurse present , for flushing the ileostomy , to ensure that their were no further signs of bleeding form ileostomy. Pt is still eating his dinner upon this writing. Will follow up shortly.
--- NOTE | 2019-08-17 19:43 | NUR ---
NURSE NOTES: Report taken from DOMINGO Huerta. Patient is awake and seated in bed, family at bedside. A&Ox4. Patient is in high spirits today despite minor episode of bleeding from ileo. No complaints of pain or discomfort. No signs of distress on room air. Surgical site c/d/i. Ileo draining to gravity c/d/i, continue Q3 flush, continue to monitor. IV site c/d/i and patent, running D51/2 @ 125mls/hr. Skin is intact. Bed in lowest position, call light within reach.
--- NOTE | 2019-08-17 19:50 | NUR ---
HAND-OFF: Report given to Yossi RN made aware of pt having an episode of bleeding from ileostomy. Carafate given and effective. No fever this shift, cont same plan of care ambualted > 6 times throughout hallway ileostomy output 900 true output flushed 150cc to include 60cc for use of carafate 1300 urinary output 1283 oral intake which included 2 protien shakes.
[2019-08-17 20:00] VITALS: BP 98/59
[2019-08-17] MEDS: Dyna-Hex 2% Top Sol 2oz TOPIC SCH (20:00)
--- NOTE | 2019-08-17 22:00 | NUR ---
NURSE NOTES: Stopped IV fluids, patient is eating properly and fluid intake is high. MD order placed to D/C fluids.
[2019-08-18] VITALS: BP 109/54
[2019-08-18 04:00] VITALS: BP 108/56
[2019-08-18 06:23] LABS: BASOPHILS % (AUTO) 0.7 % (0.0-2.0); EOSINOPHILS % (AUTO) 2.3 % (0.0-3.0); HEMATOCRIT 35.7 % (42.0-52.0); HEMOGLOBIN 11.7 G/DL (14.2-18.0); LYMPHOCYTES % (AUTO) 20.7 % (20.0-45.0); MEAN CORPUSCULAR VOLUME 80 FL (80-99); MONOCYTES % (AUTO) 11.4 % (1.0-10.0); NEUTROPHILS % (AUTO) 64.9 % (45.0-75.0); PLATELET COUNT 244 K/UL (150-450); RED BLOOD COUNT 4.46 M/UL (4.70-6.10); RED CELL DISTRIBUTION WIDTH 12.5 % (11.6-14.8); WHITE BLOOD COUNT 5.5 K/UL (4.8-10.8)
[2019-08-18 06:46] LABS: ALANINE AMINOTRANSFERASE 43 U/L (12-78); ALBUMIN 2.8 G/DL (3.4-5.0); ALBUMIN/GLOBULIN RATIO 0.8 (1.0-2.7); ALKALINE PHOSPHATASE 260 U/L (46-116); ANION GAP 5 mmol/L (5-15); ASPARTATE AMINO TRANSFERASE 24 U/L (15-37); BILIRUBIN,TOTAL 0.4 MG/DL (0.2-1.0); BLOOD UREA NITROGEN 9 mg/dL (7-18); CALCIUM 9.1 MG/DL (8.5-10.1); CARBON DIOXIDE 30 MMOL/L (21-32); CHLORIDE 106 MMOL/L (98-107); CREATININE 0.9 MG/DL (0.55-1.30); POTASSIUM 4.6 MMOL/L (3.5-5.1); SODIUM 141 MMOL/L (136-145)
[2019-08-18] MEDS: D5 1/2NS 1,000 ML IV SCH (07:15)
--- NOTE | 2019-08-18 07:28 | NUR ---
HAND-OFF: Report given to DOMINGO Altamirano. Patient is awake and in bed. VS stable. Outputs for night stated below Ileo: 295cc UO: 780cc.
--- NOTE | 2019-08-18 07:30 | NUR ---
NURSE NOTES: Received report from Ata LANE. Patient is awake and oriented, reporting no pain at this time, surgical site dressing clean, dry, intact. IV antibiotic running per order. Ileo to gravity drainage, no blood noted in output at this time. Patient states he is tolerating food well. Patient updated on plan of care for the day. Side rails upx2, bed low and locked, call light in reach. Will continue to monitor.
[2019-08-18 08:00] VITALS: BP 89/57
--- NOTE | 2019-08-18 08:08 | NUR ---
NURSE NOTES: Called radiology and spoke with Cori, informed that patient has a STAT pouchogram ordered. Per Cori, radiology is aware and someone will be up to get the patient. Will follow up as needed, charge nurse aware.
--- NOTE | 2019-08-18 10:31 | NUR ---
NURSE NOTES: Called radiology to follow up regarding pouchogram, will receive call from tech Annita to follow up. Reminded radiology that this is a STAT order, radiology aware.
--- NOTE | 2019-08-18 10:46 | NUR ---
NURSE NOTES: Called supervisor wall mirror department Kel regarding pouchogram not being done yet despite being ordered STAT, supervisor wall mirror department to follow up with radiology.
--- NOTE | 2019-08-18 10:53 | NUR ---
NURSE NOTES: Received call from cloth shearing supervisor Kel, cloth shearing supervisor reported that radiology reported they will be up to do pouchogram by 1200 and if not to follow up. Will continue to follow up.
--- NOTE | 2019-08-18 11:00 | NUR ---
NURSE NOTES: Patient picked up by transporter and taken down for pouchogram via wheelchair.
--- NOTE | 2019-08-18 11:44 | NUR ---
RADIOLOGY DEPT., KO POUCHOGRAM EXAM COMPLETED.-P.DYE
--- NOTE | 2019-08-18 11:50 | NUR ---
NURSE NOTES: Patient returned from pouchogram.
[2019-08-18 12:00] VITALS: BP 111/46
--- NOTE | 2019-08-18 13:08 | General Progress Note ---
Progress Note Progress Note Afebrile x 36 hours. Feels okay tolerating BCIR diet Pouchogram XRay reveals no sign of extravasation Abdomen soft. Labs okay except albumin 2.8 Imp: E. coli bacteremia - ? etiology (CT and pouchogram do not reveal a source) Plan: Antibiotics per Dr. Wing ? start BCIR self-intubations with RN teaching/supervision in AM Mauri Flowers MD Aug 18, 2019 13:08
--- NOTE | 2019-08-18 13:13 | NUR ---
GLASS CUTTER HELPERMACHINE CONTAINER WASHER SI; POD#13 T. 98.2 HR 84 RR 16 B/P 111/46 ALK PHOS 260 IS: MEROPENEM IV AMIKACIN IV CARAFATE PO BCIR SELF INTUBATION IN AM MED/SURG STATUS
--- NOTE | 2019-08-18 13:18 | Diagnostic Imaging Report ---
Indication: Abdominal pain and leukocytosis. Assess for leak of the recently created continent ostomy Technique: Kock Pouch Pouchogram w/SBS. Fluoroscopic examination was performed. Images were obtained before and after administration of water-soluble contrast into the continent ileostomy reservoir. Total number fluoroscopic images: 14 Total fluoroscopy time: 42.6 seconds Total fluoroscopy dose: 12.10 mGy Comparison: None. Correlation made to CT of the abdomen and pelvis 08/16/2019 Findings: Brasswind Instrument Repairer image demonstrates postoperative changes related to recent continent ileostomy creation with surgical sutures and indwelling drain. No evidence to suggest fecalith. Contrast was still via the drainage catheter and opacified the ileostomy reservoir/pouch. There is no evidence of abnormal extraluminal extravasation of contrast. Contrast was further instilled and refluxed into the feeding ileum. The opacified loops of small bowel are normal in caliber. There is no evidence to suggest small bowel obstruction. No definite luminal extravasation of administered contrast is noted. IMPRESSION: Findings in keeping with recent continent ileostomy creation. No evidence of abnormal extraluminal extravasation of instilled contrast to suggest leak.
--- NOTE | 2019-08-18 14:45 | Infectious Diseases Prog Note ---
Assessment/Plan Assessment/Plan ASSESSMENT/PLAN: 1. e.coli bacteremia, gram neg line infection (+ cath tip, line likely source), sepsis, fevers, hx leukocytosis - change to ceftriaxone - day # 3 abx - consider transition to oral keflex 500 mg po qid for one week soon - patient had reaction to ciprofloxacin in past with numbness, tingling and feeling anxious - f/u on final cath tip culture results - line removed - monitor labs - clinically better 2. History of ulcerative colitis. 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 Management per Dr. Flowers. 3. History of laparotomy and resection of failed ileoanal J-pouch and prostatectomy and subsegmental small-bowel resection. 4. History of multiple abdominal surgeries. 5. Ulcerative colitis. Management per Dr. Flowers and consultants. 6. History of colectomy and also diverting ileostomy. 7. Possible reaction to Cipro with tingling and numbness. No other drug allergies. 8. Family history is noncontributory 9. Social history is negative. 10. MAR was noted. 11. Case was discussed with RN. 12. Case discussed with the patient and his . 13. Continue treatment per primary consultants. Subjective Constitutional: Denies: fever HEENT: Denies: congestion Respiratory: Denies: shortness of breath Cardiovascular: Denies: chest pain Gastrointestinal/Abdominal: Denies: nausea, vomiting, diarrhea Genitourinary: Denies: dysuria Neurologic: Denies: headache Skin: Denies: rash Hematologic: Denies: bleeding Musculoskeletal: Denies: pain Allergies: Coded Allergies: NO KNOWN ALLERGIES (Verified Allergy, Unknown, 08/04/19) Objective Vital Signs Last 24 Hour Vital Signs Date Time Temp Pulse Resp B/P (MAP) Pulse Ox O2 Delivery O2 Flow Rate FiO2 08/18/19 12:00 98.2 84 16 111/46 (67) 100 08/18/19 09:00 Room Air 08/18/19 08:00 98.2 72 16 89/57 (68) 99 08/18/19 04:00 98.8 79 17 108/56 (73) 98 08/18/19 00:00 98.7 81 17 109/54 (72) 98 08/17/19 21:00 Room Air 08/17/19 20:00 98.8 83 19 98/59 (72) 99 08/17/19 16:00 98.5 82 19 100/62 (75) 97 Height (Feet): 6 Height (Inches): 0.00 Weight (Pounds): 162 General Appearance: no acute distress HEENT: normocephalic, atraumatic, anicteric, mucous membranes moist Respiratory/Chest: lungs clear, normal breath sounds, no respiratory distress, no accessory muscle use Cardiovascular: normal rate, regular rhythm, no gallop/murmur, no JVD Abdomen: normal bowel sounds, soft, non tender, no organomegaly, non distended Genitourinary: other - no redmond Extremities: no cyanosis Skin: no rash Neurologic/Psychiatric: complex director II-XII grossly normal, alert, oriented x 3, responsive Lymphatic: no neck adenopathy Musculoskeletal: no effusion Objective Chest x-ray - nad, report noted CT scan of abdomen and pelvis: IMPRESSION: No acute findings appreciated. Status post total colectomy. Continent ileostomy appears unremarkable. No evidence of bowel obstruction, abscess or free fluid. Trace air in the ventral abdominal wall probably on the basis of recent surgery. Correlate with the timing of this finding. Splenomegaly Tiny bilateral renal hypodensities too small to characteriz Microbiology Date/Time Source Procedure Growth Status 08/17/19 04:20 Blood Blood Culture - Preliminary NO GROWTH AFTER 24 HOURS Resulted 08/17/19 04:05 Blood Blood Culture - Preliminary NO GROWTH AFTER 24 HOURS Resulted 08/15/19 19:50 Blood Blood Culture - Final Escherichia Coli Complete 08/15/19 19:35 Blood Blood Culture - Final Escherichia Coli Complete 08/15/19 20:30 Other(Specify in comment) Catheter Tip Culture - Preliminary Gram Negative Bacillus 1 Resulted 08/15/19 21:50 Urine,Clean Catch Urine Culture - Preliminary Resulted Laboratory Tests Test 08/18/19 05:40 White Blood Count 5.5 K/UL (4.8-10.8) Red Blood Count 4.46 M/UL (4.70-6.10) L Hemoglobin 11.7 G/DL (14.2-18.0) L Hematocrit 35.7 % (42.0-52.0) L Mean Corpuscular Volume 80 FL (80-99) Mean Corpuscular Hemoglobin 26.3 PG (27.0-31.0) L Mean Corpuscular Hemoglobin Concent 32.8 G/DL (32.0-36.0) Red Cell Distribution Width 12.5 % (11.6-14.8) Platelet Count 244 K/UL (150-450) Mean Platelet Volume 5.4 FL (6.5-10.1) L Neutrophils (%) (Auto) 64.9 % (45.0-75.0) Lymphocytes (%) (Auto) 20.7 % (20.0-45.0) Monocytes (%) (Auto) 11.4 % (1.0-10.0) H Eosinophils (%) (Auto) 2.3 % (0.0-3.0) Basophils (%) (Auto) 0.7 % (0.0-2.0) Sodium Level 141 MMOL/L (136-145) Potassium Level 4.6 MMOL/L (3.5-5.1) Chloride Level 106 MMOL/L (98-107) Carbon Dioxide Level 30 MMOL/L (21-32) Anion Gap 5 mmol/L (5-15) Blood Urea Nitrogen 9 mg/dL (7-18) Creatinine 0.9 MG/DL (0.55-1.30) Estimat Glomerular Filtration Rate > 60 mL/min (>60) Glucose Level 92 MG/DL (74-106) Calcium Level 9.1 MG/DL (8.5-10.1) Total Bilirubin 0.4 MG/DL (0.2-1.0) Aspartate Amino Transf (AST/SGOT) 24 U/L (15-37) Alanine Aminotransferase (ALT/SGPT) 43 U/L (12-78) Alkaline Phosphatase 260 U/L (46-116) H Total Protein 6.5 G/DL (6.4-8.2) Albumin 2.8 G/DL (3.4-5.0) L Globulin 3.7 g/dL Albumin/Globulin Ratio 0.8 (1.0-2.7) L Current Medications Medications (Trade) Dose Ordered Sig/Britney Route PRN Reason Start Time Stop Time Status Last Admin Dose Admin Acetaminophen (Tylenol) 650 mg Q4H PRN ORAL Mild Pain/Temp > 100.2 08/16/19 07:18 09/15/19 07:17 08/17/19 22:16 Ascorbic Acid (Vitamin C) 500 mg NEEDED PRN ORAL Constipation 08/14/19 13:15 09/13/19 13:14 08/14/19 13:14 Chlorhexidine Gluconate (Barb-Hex 2%) 1 applic DAILY@1999 TOPIC 08/04/19 20:00 09/03/19 19:59 08/14/19 20:42 Dextrose (Dextrose 50%) 25 ml Q30M PRN IV Hypoglycemia 08/06/19 14:15 09/05/19 14:14 Dextrose (Dextrose 50%) 50 ml Q30M PRN IV Hypoglycemia 08/06/19 14:15 09/05/19 14:14 Lidocaine HCl (Xylocaine Jelly 2%) 1 applic NEEDED PRN TOPIC For Pain 08/13/19 09:45 09/12/19 09:44 Ondansetron HCl (Zofran) 4 mg Q4H PRN IVP Nausea & Vomiting 08/05/19 12:30 09/04/19 12:29 08/06/19 20:08 Simethicone (Mylicon) 80 mg Q6H PRN ORAL GAS, abd bloating 08/14/19 15:15 09/13/19 15:14 08/14/19 15:10 Sucralfate (Carafate) 1 gm Q4H PRN ORAL Ileo bleeding 08/12/19 07:00 09/10/19 07:29 08/17/19 13:59 Temazepam (Restoril) 7.5 mg HSPRN PRN ORAL Insomnia 08/14/19 20:00 08/21/19 19:59 Gaudencio Page MD Aug 18, 2019 14:45
--- NOTE | 2019-08-18 15:59 | NUR ---
*-* INSURANCE *-* ALL CLINICALS AND REVIEWS HAVE BEEN FAXED TO: [facility] FAX CLINICALS TO [phone] [place] FAX CLINICALS BEFORE 08/10/19 DEPT P: [phone] REF# [id number]
[2019-08-18 16:00] VITALS: BP 97/66
[2019-08-18] MEDS: cefTRIAXone 1 GM in D5W 50 ML IVPB SCH (16:17)
--- NOTE | 2019-08-18 18:47 | NUR ---
NURSE NOTES: Total ileo output: +1020mL Total urine output: 750mL Patient is tolerating food well, only ate 30% of dinner because he stated he did not like the food. Consumed adequate PO fluids throughout shift.
--- NOTE | 2019-08-18 19:17 | NUR ---
HAND-OFF: Report given to Nhan LANE.
[2019-08-18 20:00] VITALS: BP 94/60
--- NOTE | 2019-08-18 21:10 | NUR ---
NURSE NOTES: Received report from DOMINGO Altamirano. Patient is in bed. Ileostomy is draining dark brown liquid stool. Dressing and surgical site is c/d/i. R forearm 20g IV is intact and saline locked. No c/o of pain, nausea or gas. Family at bedside.
[2019-08-19 06:18] LABS: BASOPHILS % (AUTO) 0.7 % (0.0-2.0); EOSINOPHILS % (AUTO) 2.3 % (0.0-3.0); HEMATOCRIT 35.6 % (42.0-52.0); HEMOGLOBIN 11.7 G/DL (14.2-18.0); LYMPHOCYTES % (AUTO) 14.6 % (20.0-45.0); MEAN CORPUSCULAR VOLUME 80 FL (80-99); MONOCYTES % (AUTO) 6.5 % (1.0-10.0); NEUTROPHILS % (AUTO) 75.9 % (45.0-75.0); PLATELET COUNT 299 K/UL (150-450); RED BLOOD COUNT 4.43 M/UL (4.70-6.10); RED CELL DISTRIBUTION WIDTH 12.6 % (11.6-14.8); WHITE BLOOD COUNT 7.4 K/UL (4.8-10.8)
[2019-08-19 06:57] LABS: ALANINE AMINOTRANSFERASE 39 U/L (12-78); ALBUMIN 2.9 G/DL (3.4-5.0); ALBUMIN/GLOBULIN RATIO 0.7 (1.0-2.7); ALKALINE PHOSPHATASE 244 U/L (46-116); ANION GAP 5 mmol/L (5-15); ASPARTATE AMINO TRANSFERASE 22 U/L (15-37); BILIRUBIN,TOTAL 0.4 MG/DL (0.2-1.0); BLOOD UREA NITROGEN 10 mg/dL (7-18); CALCIUM 9.3 MG/DL (8.5-10.1); CARBON DIOXIDE 32 MMOL/L (21-32); CHLORIDE 104 MMOL/L (98-107); CREATININE 0.9 MG/DL (0.55-1.30); POTASSIUM 4.3 MMOL/L (3.5-5.1); SODIUM 141 MMOL/L (136-145)
--- NOTE | 2019-08-19 07:30 | NUR ---
NURSE NOTES: Received report from Nhan LANE. Patient is awake and oriented during rounds, no acute distress noted, reporting no pain at this time. Ileo to gravity drainage, IV intact, asymptomatic. Patient updated on plan of care for the days. Side rails upx2, bed low and locked, call light in reach. Will continue to monitor.
[2019-08-19 08:00] VITALS: BP 92/55
--- NOTE | 2019-08-19 08:41 | General Progress Note ---
Progress Note Progress Note AVSS doing well and now on Rocephin per ID BCIR ileo catheter removed - reinserts readily BCIR ileo 1240 with patient eating BCIR diet + protein shakes labs okay except albumin 2.9 (he refused TPN and Venofer) Imp: improved Plan: RN supervised BCIR self-intubations with teaching start this AM: q2h am to hs and q0200 continue strict I&O Mauri Flowers MD Aug 19, 2019 08:41
--- NOTE | 2019-08-19 10:58 | NUR ---
NURSE NOTES: Patient attempted first self intubation at 1000. Stool did not come out when patient self intubated with willam catheter. Attempted to intubate sitting down, standing, and laying down. Called Dr. Flowers and informed MD, Dr. Flowers ordered to intubate with 28Fr redmond catheter. Successfully intubated with 28Fr redmond catheter while patient was lying down, +65mL of true ileo output came out, Dr. Montez informed. Patient denies pain and discomfort at this time. Dr. Flowers ordered to have patient attempt to intubate with 28Fr redmond catheter at 1200. Will continue to follow up.
[2019-08-19 12:00] VITALS: BP 97/61
--- NOTE | 2019-08-19 12:17 | NUR ---
NURSE NOTES: Patient successfully self intubated with 28 Fr redmond catheter at 1200. 100mL of stool out.
[2019-08-19 16:00] VITALS: BP 102/63
--- NOTE | 2019-08-19 16:24 | NUR ---
*-* INSURANCE *-* ALL CLINICALS AND REVIEWS HAVE BEEN FAXED TO: [facility] FAX CLINICALS TO [phone] [place] FAX CLINICALS BEFORE 08/10/19 DEPT P: [phone] REF# [id number]
[2019-08-19] MEDS: cefTRIAXone 1 GM in D5W 50 ML IVPB SCH (16:30)
--- NOTE | 2019-08-19 18:36 | NUR ---
NURSE NOTES: Patient attempted to self intubate with pandya catheter at 1800, as ordered by Dr. Flowers. Patient was unable to self intubate with pandya, no output came out. Patient successfully self intubated with 28 Fr redmond catheter without issue. 100mL of stool came out.
[2019-08-19 18:37] LABS: APPEARANCE,URINE CLEAR; BILIRUBIN, URINE NEGATIVE (NEGATIVE); GLUCOSE, URINE (UA) NEGATIVE (NEGATIVE); KETONES,URINE NEGATIVE (NEGATIVE); LEUKOCYTE ESTERASE ,URINE NEGATIVE (NEGATIVE); NITRITE,URINE NEGATIVE (NEGATIVE); PH,URINE 5 (4.5-8.0); PROTEIN,URINE 1+ (NEGATIVE); UROBILINOGEN,URINE NORMAL MG/DL (0.0-1.0)
--- NOTE | 2019-08-19 18:47 | NUR ---
NURSE NOTES: Total ileo output: +625mL Total urine output: 550mL Patient provided with discharge supplies per order.
[2019-08-19 19:04] LABS: COLOR,URINE YELLOW
--- NOTE | 2019-08-19 19:50 | NUR ---
HAND-OFF: Report given to Rossy LANE.
[2019-08-19 20:00] VITALS: BP 104/63
--- NOTE | 2019-08-20 04:29 | NUR ---
NURSE NOTE: Received pt in his room, lying in bed with beside him in next bed. Patient denies pain and appears comfortable with no outward s/s or distress noted. Patient has started to self intubate. NOC shift accompaned the patient at 2000, 2200 and 0200. Patient prefers privacy, but encountered no difficulties at any attempt. No PRN medications requested. Patient has requested to not be disturbed until morning. Will continue to monitor. Bed at lowest level, call light within reach.
--- NOTE | 2019-08-20 07:11 | NUR ---
HAND-OFF: Report given to DOMINGO Altamirano.
--- NOTE | 2019-08-20 07:37 | NUR ---
NURSE NOTES: Received report from Rossy LANE. Patient is awake and oriented, no acute distress noted, reporting no pain or discomfort at this time. Per report, patient did not want to intubate around 0600, asked patient if he is ready to intubate now but patient said he is not ready, educated patient to intubate by 0800 at the latest and then every two hours today, patient in agreement, will follow up at 0800. Needs met at this time, patient's breakfast at bedside. Side rails upx2, bed low and locked, call light in reach. Will continue to monitor.
[2019-08-20 08:00] VITALS: BP 93/55
--- NOTE | 2019-08-20 09:19 | General Progress Note ---
Progress Note Progress Note AVSS Feels well. Intubating with 28 Bains without difficulty - Leticia and Medena do not drain pouch contents Abdomen soft, nicely healed incision and stoma Urine 1225 BCIR fileo 1025 Imp: Stable Plan: discharge Rx Keflex 500mg #12 q6h give today's dose of Rocephin early instructions/limitations/supplies provided/discussed f/u office 08/23 Mauri Flowers MD Aug 20, 2019 09:19
[2019-08-20] MEDS ORDERED: cefTRIAXone 1gm/D5W 55ml IVPB SCH ×2 (10:00)
--- NOTE | 2019-08-20 11:14 | NUR ---
*-* INSURANCE *-* UPDATED CLINICALS HAVE BEEN FAXED TO: [facility] FAX CLINICALS TO [phone] [place] FAX CLINICALS BEFORE 08/10/19 DEPT P: [phone] REF# [id number]
[2019-08-20 12:00] VITALS: BP 104/62
--- NOTE | 2019-08-20 12:50 | NUR ---
NURSE NOTES: Patient able to self intubate with 28 Fr redmond catheter at 0800,1000, and 1200 without issue.
[2019-08-20] MEDS ORDERED: D5 1/2NS 1000ml IV ONE (12:59)
--- NOTE | 2019-08-20 13:10 | NUR ---
NURSE NOTES: Patient discharged in stable condition at 1300. All education reviewed with patient and patient verbalized understanding of provided education. Patient received BCIR education packet. Patient provided with all discharge supplies, IV removed intact. Patient and his escorted off unit by RN to private vehicle.
--- NOTE | 2019-08-22 16:41 | Discharge Summary ---
Discharge Summary Discharge Summary _ DATE OF ADMISSION: 08/04/2019 DATE OF DISCHARGE: 08/20/2019 DISCHARGED BY: Dr. Mauri Flowers CONSULTANTS: Dr. Gaudencio Wing HISTORY OF PRESENT ILLNESS: The patient is a 28-year-old male in overall stable health with a failed ileoanal J-pouch scheduled to undergo surgery including abdominal-perineal proctectomy and resection of failed ileoanal S-pouch and creation of a Harris continent intestinal reservoir. The patient has a past history of ulcerative colitis that developed in 2013 and failed all medical treatments. In October 2016, he underwent total colectomy with S-pouch and loop ileostomy in a laparoscopic-assisted procedure. The ileostomy was closed in October 2016. Ever since then, he has had frequent stools 10 to 15 times per day plus up to 5 stools every night and he has incontinence. 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 BRIEF HOSPITAL COURSE: Patient was admitted. PICC line was inserted. He was given bowel prep. Started on preop IV antibiotics. He was started on subcu heparin. He was started on intravenous antibiotics. On 08/05/2019, he underwent laparotomy with resection of failed ileoanal J- pouch with distal proctectomy, segmental small bowel resection with prior enteroenterostomy, Harris continent intestinal reservoir, catheter gastrostomy. He tolerated procedure well. On 08/06/2019, pain was controlled with morphine MINE MANAGER. He was ambulating. Abdomen was distended, soft. Incision clean, stoma pink. Gastrostomy had 165 cc bilious output. He was kept on n.p.o. Gastrostomy and BCIR catheter to continuous gravity drainage. He was given Venofer. He was continued on Bains catheter. On 08/07/2019, he was comfortable with minimal occasional nausea. Abdomen was mildly distended. WBC down. He was continued on n.p.o. He had low albumin. He was started on TPN. On 08/08/2019, he was comfortable with no basal infusion of MINE MANAGER. He was given 1 dose of Toradol. Abdomen was mildly distended. He was continued on n.p.o., and TPN. Continued on antibiotics and Bains catheter. He was given magnesium infusion. On 08/09/2019, he was refusing interventions like Accu-Chek and peripheral lab draw. He was ambulating well. He had severe back taste in mouth from TPN and requests to discontinue TPN. MINE MANAGER and TPN were discontinued. He was continued on n.p.o. status. BCIR ileal output 790. Gastrostomy output 870. On 08/10/2019, Bains catheter was discontinued. He was improving slowly. He was continued on n.p.o. with BC IR ileostomy and gastrostomy catheter to continuous drainage. Abdomen was soft and healing nicely. On 08/11/2019, he had some bloody drainage from the Harris pouch. BCIR ileal output 565. ABDELRAHMAN drain nil. Carafate was instilled into the pouch every 4 hrs prn bleeding. He was started on clear liquid diet with gastrostomy tube to drainage. On 08/12/2019, he was continued on clear liquid diet with gastrostomy 3: 3 protocol. He was tolerating clear liquid diet well. ABDELRAHMAN drain was removed. On 08/13/2019, he was started on BC IR diet. IV fluids discontinued. He was continued on Venofer. On 08/14/2019, he was feeling okay, but with no appetite and early fullness after eating BC IR diet 50 to 60% of meals. [place] drain was removed. Maintain continuous drainage of BCIR. On 08/15/2019, patient was not eating well, patient was seen Venofer was causing nausea. Output was very thick, but better. He was given protein supplements for diet. Venofer discontinued. Maintained continuous drainage of BCIR. Aty were removed. Steri-Strips applied. Gastrostomy removed. On 08/16/2019, stat CT of the abdomen and pelvis was done. Patient had high- grade fever the night prior. Blood culture was done. PICC line was removed. Urine was sent for culture. He was placed on n.p.o. Maintain continuous drainage of BCIR. CT scan was negative for abscess or extravasation. Harris pouch looked okay. ID was consulted. Patient was started on Zosyn. Blood culture showed growth of gram-negative rods. On 08/17/2019, patient still with low-grade fever. Patient was eating BC IR diet but not much appetite. He had an episode of bleeding via Harris pouch catheter. Carafate was instilled. There was no leukocytosis. PICC line tip showed growth of E.coli. Urinalysis with growth of enterococcus. Patient had gram-negative bacteremia and was given meropenem and amikacin. On 08/18/2019, patient had been afebrile and was tolerating BC IR diet. Pouchogram x-ray revealed no signs of extravasation. E. coli bacteremia, ? Etiology as a CT and pouchogram did not reveal any source. He was continued on antibiotics. On 08/19/2019, patient continued to be afebrile. BCIR ileo catheter was removed and reinserted easily. Patient was started on RN supervised BCIR self intubation. On 08/20/2019, patient was intubated and will with 28 Bains without difficulty. Leticia and Medena did not drain pouch contents. Abdomen was soft, incision and stoma nicely healed. Patient was cleared for discharge. To continue antibiotics as outpatient. FINAL DIAGNOSES: 1. Malfunctioning and failed ileoanal pouch. 2. History of ulcerative colitis. 3. Status post multiple abdominal operations. 3.1. Laparoscopic-assisted total abdominal colectomy and partial proctectomy with creation of ileoanal S-pouch with diverting loop ileostomy in the left lower quadrant in August 2016. 3.2. Closure of diverting ileostomy in October 2016. 4.0 E. coli bacteremia OPERATION PERFORMED: 1. Laparotomy with resection of failed ileoanal J-pouch with distal proctectomy. 2. Segmental small bowel resection with prior enteroenterostomy. 3. Harris continent intestinal reservoir. 4. Catheter gastrostomy. DISPOSITION: Patient was discharged home. DISCHARGE INSTRUCTIONS: Follow-up on 08/23/19. I have been assigned to complete a discharge summary on this account, I was not involved with the patient's management.--MARY Spencer Jacqueline Robles NP Aug 22, 2019 16:41
--- NOTE | 2019-08-23 11:29 | NUR ---
*-* INSURANCE *-* DISCHARGE SUMMARY HAS BEEN FAXED TO: [facility] FAX CLINICALS TO [phone] [place] FAX CLINICALS BEFORE 08/10/19 DEPT P: [phone] REF# [id number]
== END 2019-08-20 13:00 | disposition home or self-care (01) | DRG 329 ==
LOC: 3E 09:10
DX: K91.858 Other complications of intestinal pouch (principal); A41.50 Gram-negative sepsis, unspecified; T80.211A Bloodstream infection due to central venous catheter, initial encounter; E87.0 Hyperosmolality and hypernatremia; K56.7 Ileus, unspecified; J98.11 Atelectasis; E86.0 Dehydration; E61.1 Iron deficiency; K91.850 Pouchitis
CPT/HCPCS: 36415; 36569; 71045; 74177; 74270; 76937; 80048; 80053; 80150; 81001; 81003; 82248; 82607; 82728; 82746; 82962; 83540; 83550; 83735; 84100; 85007; 85025; 85610; 85730; 86850; 86900; 86901; 87040; 87070; 87086; 87181; 93005; 94003; 94150; J1815; J2405; J2710; J2765